=== PATIENT | male | born 1945 | race Caucasian/White ===

== ENCOUNTER → 2022-09-08 | Outpatient (REF) | payer MEDICARE, BC, SELFPAY ==
[2022-09-08 17:22] LABS: Hemoglobin 12.3 g/dL (13.0-16.5); Mean Corp Hgb Conc 30.8 g/dL (32-36); Mean Corpuscular Hgb 28.5 pg (27.0-32.0); Mean Corpuscular Volume 92.8 fL (80-94); Mean Platelet Vol. 9.6 fl (6.2-12.0); Platelet Count 259 K/mm3 (150-450); RBC Distribution Width CV 15.8 % (11.6-14.6); RBC Distribution Width SD 54.4 fl (35.1-43.9); Red Blood Count 4.31 M/mm3 (4.6-6.2); White Blood Count 9.8 K/mm3 (4.4-11.0)
[2022-09-08 17:23] LABS: Color, Urine Straw (Yellow); Glucose, Dipstick Normal (Normal); Ketone-Dipstick Negative (Negative); Leukocyte Esterase-Dipstick Negative /ul (Negative); Nitrite-Dipstick Negative (Negative); Occult Blood-Urine Negative /ul (Negative); Protein-Dipstick Negative (Negative); Urine Bilirubin Dipstick Negative (Negative); Urine Clarity Clear (Clear); Urine Urobilinogen Normal (Normal)
[2022-09-08 17:45] LABS: ALB/GLOB Ratio 0.6 RATIO (0.9-2.4); AST(SGOT) 11 U/L (15-37); Alanine Aminotransfer ALT/SGPT 18 U/L (16-61); Albumin, Serum 3.2 g/dL (3.2-5.0); Alkaline Phosphatase 100 U/L (45-117); Anion Gap 7 (5-15); BUN 35 mg/dL (7-18); BUN/Creat Ratio 28.5 RATIO (10-20); Calcium,Total 9.2 mg/dL (8.5-10.1); Chloride 100 mmol/L (98-107); Creatinine, Serum 1.23 mg/dL (0.70-1.30); EST Glomerular Filtration Rate 61 mL/min (>60); Est Glom Filt Rate - Afr Amer 74 mL/min (>60); Globulin 5.1 g/dL (2.2-4.2); Glucose 125 mg/dL (74-106); Potassium 5.2 mmol/L (3.5-5.1); Protein, Total 8.3 g/dL (6.4-8.2); Sodium Level 134 mmol/L (136-145)
== END ==
LOC: OLS.ACH 16:40
PROVIDERS: Visit Provider Family Medicine
DX: G40.919 Epilepsy, unspecified, intractable, without status epilepticus (principal); Z79.899 Other long term (current) drug therapy
CPT/HCPCS: 36415; 80053; 81002; 85027; 87086

== ENCOUNTER → 2022-09-15 | Outpatient (REF) | payer MEDICARE, BC, SELFPAY ==
[2022-09-15 18:01] LABS: Absolute Lymphocyte Count 2.16 X10^3/uL (0.83-4.51); Absolute Neutrophil Count 5.5 X10^3/uL (2.0-7.7); Basophil# 0.05 X10^3/uL; Basophil% 0.6 % (0-1); Eosinophil# 0.25 X10^3/uL; Eosinophils% 2.8 % (0-5); Hemoglobin 12.8 g/dL (13.0-16.5); Lymphocyte # 2.16 X10^3/ul (0.83-4.51); Lymphocyte % 24.3 % (19-41); Mean Corpuscular Hgb 29.4 pg (27.0-32.0); Mean Platelet Vol. 9.9 fl (6.2-12.0); Monocyte# 0.91 X10^3/uL; Monocyte% 10.2 % (0-10); NRBC Flagged by Analyzer 0 % (0-5); Neutrophil # 5.49 X10^3/uL (2.7-7.7); Neutrophil % 61.7 % (47-70); Platelet Count 301 K/mm3 (150-450); RBC Distribution Width CV 15.9 % (11.6-14.6); RBC Distribution Width SD 54.2 fl (35.1-43.9); Red Blood Count 4.35 M/mm3 (4.6-6.2); White Blood Count 8.9 K/mm3 (4.4-11.0)
[2022-09-15 18:24] LABS: ALB/GLOB Ratio 0.6 RATIO (0.9-2.4); AST(SGOT) 17 U/L (15-37); Alanine Aminotransfer ALT/SGPT 26 U/L (16-61); Albumin, Serum 3.2 g/dL (3.2-5.0); Alkaline Phosphatase 100 U/L (45-117); Anion Gap 8 (5-15); BUN 34 mg/dL (7-18); BUN/Creat Ratio 29.8 RATIO (10-20); Calcium,Total 9.5 mg/dL (8.5-10.1); Chloride 101 mmol/L (98-107); Creatinine, Serum 1.14 mg/dL (0.70-1.30); EST Glomerular Filtration Rate 66 mL/min (>60); Est Glom Filt Rate - Afr Amer 80 mL/min (>60); Globulin 5.4 g/dL (2.2-4.2); Glucose 129 mg/dL (74-106); Protein, Total 8.6 g/dL (6.4-8.2); Sodium Level 134 mmol/L (136-145)
[2022-09-16 08:58] LABS: Bacteria 0 SEEN /hpf (None Seen); Mucous, Urine 0 SEEN /hpf (<or=2+); Red Blood Cells-Urine 0 SEEN /hpf (0-5); Squamous Epithelial Cells - UA 0 SEEN /hpf (0-5)
[2022-09-16 09:12] LABS: Color, Urine Yellow (Yellow); Glucose, Dipstick Normal (Normal); Ketone-Dipstick Negative (Negative); Leukocyte Esterase-Dipstick 25 /ul (Negative); Nitrite-Dipstick Negative (Negative); Occult Blood-Urine Negative /ul (Negative); Protein-Dipstick Negative (Negative); Specific Gravity, Urine 1.015 (1.002-1.030); Urine Bilirubin Dipstick Negative (Negative); Urine Clarity Clear (Clear); Urine Urobilinogen Normal (Normal); Urine pH 6.5 (5.0 - 8.0)
[2022-09-16 10:30] LABS: White Blood Cells 0-5 SEEN /hpf (0-5)
== END ==
LOC: OLS.ACH 16:15
PROVIDERS: Visit Provider Family Medicine
DX: R50.9 Fever, unspecified (principal); G93.40 Encephalopathy, unspecified
CPT/HCPCS: 36415; 80053; 81001; 82140; 85025; 87040; 87086

== ENCOUNTER → 2022-09-18 | Outpatient (REF) | payer MEDICARE, BC, SELFPAY ==
[2022-09-18 09:40] LABS: Valproic Acid (Depakene) Level 44 ug/mL (50-100)
== END ==
LOC: OLS.ACH 05:00
PROVIDERS: Visit Provider Family Medicine
DX: G40.919 Epilepsy, unspecified, intractable, without status epilepticus (principal)
CPT/HCPCS: 36415; 80164; 82140

== ENCOUNTER → 2022-09-25 | Outpatient (REF) | payer MEDICARE, BC, SELFPAY ==
[2022-09-25 08:29] LABS: Valproic Acid (Depakene) Level 49 ug/mL (50-100)
[2022-09-26 05:23] LABS: Anion Gap 10 (5-15); BUN 20 mg/dL (7-18); BUN/Creat Ratio 22.1 RATIO (10-20); Chloride 100 mmol/L (98-107); EST Glomerular Filtration Rate 87 mL/min (>60); Est Glom Filt Rate - Afr Amer 105 mL/min (>60); Glucose 93 mg/dL (74-106); Potassium 5.3 mmol/L (3.5-5.1); Sodium Level 136 mmol/L (136-145)
== END ==
LOC: OLS.ACH 05:00
PROVIDERS: Visit Provider Family Medicine
DX: G40.919 Epilepsy, unspecified, intractable, without status epilepticus (principal)
CPT/HCPCS: 36415; 80048; 80164; 82140

== ENCOUNTER → 2022-09-29 | Outpatient (REF) | payer MEDICARE, BC, SELFPAY ==
[2022-09-29 09:18] LABS: Anion Gap 7 (5-15); BUN 29 mg/dL (7-18); BUN/Creat Ratio 30.4 RATIO (10-20); Calcium,Total 8.5 mg/dL (8.5-10.1); Chloride 103 mmol/L (98-107); Creatinine, Serum 0.95 mg/dL (0.70-1.30); EST Glomerular Filtration Rate 82 mL/min (>60); Est Glom Filt Rate - Afr Amer 99 mL/min (>60); Glucose 102 mg/dL (74-106); Sodium Level 136 mmol/L (136-145)
== END ==
LOC: OLS.ACH 05:00
PROVIDERS: Visit Provider Family Medicine
DX: I25.10 Atherosclerotic heart disease of native coronary artery without angina pectoris (principal)
CPT/HCPCS: 36415; 80048

== ENCOUNTER → 2022-10-16 | Outpatient (REF) | payer MEDICARE, BC, SELFPAY ==
[2022-10-16 10:28] LABS: Absolute Lymphocyte Count 2.23 X10^3/uL (0.83-4.51); Absolute Neutrophil Count 5.8 X10^3/uL (2.0-7.7); Basophil# 0.04 X10^3/uL; Basophil% 0.4 % (0-1); Eosinophil# 0.15 X10^3/uL; Eosinophils% 1.6 % (0-5); Hematocrit 39.4 % (40-54); Hemoglobin 12.1 g/dL (13.0-16.5); Lymphocyte # 2.23 X10^3/ul (0.83-4.51); Mean Corp Hgb Conc 30.7 g/dL (32-36); Mean Corpuscular Hgb 28.7 pg (27.0-32.0); Mean Corpuscular Volume 93.6 fL (80-94); Mean Platelet Vol. 9.2 fl (6.2-12.0); Monocyte# 1.06 X10^3/uL; Monocyte% 11.4 % (0-10); NRBC Flagged by Analyzer 0 % (0-5); Neutrophil # 5.78 X10^3/uL (2.7-7.7); Neutrophil % 62.2 % (47-70); Platelet Count 294 K/mm3 (150-450); RBC Distribution Width CV 17.1 % (11.6-14.6); RBC Distribution Width SD 58.4 fl (35.1-43.9); Red Blood Count 4.21 M/mm3 (4.6-6.2); White Blood Count 9.3 K/mm3 (4.4-11.0)
[2022-10-16 10:45] LABS: ALB/GLOB Ratio 0.6 RATIO (0.9-2.4); AST(SGOT) 20 U/L (15-37); Alanine Aminotransfer ALT/SGPT 28 U/L (16-61); Albumin, Serum 3.1 g/dL (3.2-5.0); Alkaline Phosphatase 85 U/L (45-117); Anion Gap 5 (5-15); BUN 32 mg/dL (7-18); BUN/Creat Ratio 28.1 RATIO (10-20); Calcium,Total 9.1 mg/dL (8.5-10.1); Chloride 104 mmol/L (98-107); Cholesterol 186 mg/dL (200); Creatinine, Serum 1.14 mg/dL (0.70-1.30); EST Glomerular Filtration Rate 66 mL/min (>60); Est Glom Filt Rate - Afr Amer 80 mL/min (>60); Glucose 82 mg/dL (74-106); High Density Lipoprotein 35 mg/dL; Protein, Total 8.1 g/dL (6.4-8.2); Sodium Level 135 mmol/L (136-145); Triglycerides 241 mg/dL; Very Low Density Lipoprotein 48 mg/dL (5-40)
[2022-10-16 11:19] LABS: Hemoglobin A1c 6.4 % (3.8-5.6)
== END ==
LOC: OLS.ACH 05:00
PROVIDERS: Visit Provider Family Medicine
DX: G93.40 Encephalopathy, unspecified (principal); I11.0 Hypertensive heart disease with heart failure; I50.9 Heart failure, unspecified; Z79.899 Other long term (current) drug therapy
CPT/HCPCS: 36415; 80053; 80061; 82140; 83036; 85025

== ENCOUNTER → 2022-10-18 | Outpatient (REF) | payer MEDICARE, BC, SELFPAY ==
[2022-10-18 08:13] LABS: AST(SGOT) 24 U/L (15-37); Alanine Aminotransfer ALT/SGPT 27 U/L (16-61); Albumin, Serum 2.4 g/dL (3.2-5.0); Alkaline Phosphatase 74 U/L (45-117); Bilirubin, Direct < 0.05 mg/dL (0.00-0.30); Globulin 4.8 g/dL (2.2-4.2); Protein, Total 7.2 g/dL (6.4-8.2)
== END ==
LOC: OLS.ACH 05:00
PROVIDERS: Visit Provider Family Medicine
DX: E72.29 Other disorders of urea cycle metabolism (principal)
CPT/HCPCS: 36415; 80076; 82140

== ENCOUNTER → 2022-10-23 | Outpatient (REF) | payer MEDICARE, BC, SELFPAY | LOC: OLS.ACH 05:00 | PROVIDERS: Visit Provider Family Medicine | DX: E72.29 Other disorders of urea cycle metabolism (principal) | CPT/HCPCS: 36415; 82140 ==

== ENCOUNTER → 2022-10-30 | Outpatient (REF) | payer MEDICARE, BC, SELFPAY | LOC: OLS.ACH 05:00 | PROVIDERS: Visit Provider Family Medicine | DX: E72.29 Other disorders of urea cycle metabolism (principal) | CPT/HCPCS: 36415; 82140 ==

== ENCOUNTER → 2022-11-07 | Outpatient (REF) | payer MEDICARE, BC, SELFPAY | LOC: OLS.ACH 04:00 | PROVIDERS: Visit Provider Family Medicine | DX: E72.20 Disorder of urea cycle metabolism, unspecified (principal) | CPT/HCPCS: 36415; 82140 ==

== ENCOUNTER → 2022-11-14 | Outpatient (REF) | payer MEDICARE, BC, SELFPAY | LOC: OLS.ACH 04:00 | PROVIDERS: PCP Internal Medicine; Referring Provider Internal Medicine; Visit Provider Internal Medicine | DX: G93.40 Encephalopathy, unspecified (principal); E72.20 Disorder of urea cycle metabolism, unspecified | CPT/HCPCS: 36415; 82140 ==

== ENCOUNTER → 2022-11-16 | Outpatient (REF) | payer MEDICARE, BC, SELFPAY ==
[2022-11-16 09:54] LABS: Hematocrit 38.4 % (40-54); Hemoglobin 11.4 g/dL (13.0-16.5); Mean Corp Hgb Conc 29.7 g/dL (32-36); Mean Corpuscular Hgb 29.2 pg (27.0-32.0); Mean Corpuscular Volume 98.5 fL (80-94); Mean Platelet Vol. 9.7 fl (6.2-12.0); Platelet Count 200 K/mm3 (150-450); RBC Distribution Width SD 61.3 fl (35.1-43.9); White Blood Count 9.1 K/mm3 (4.4-11.0)
== END ==
LOC: OLS.ACH 05:00
PROVIDERS: Visit Provider Internal Medicine
DX: D64.9 Anemia, unspecified (principal)
CPT/HCPCS: 36415; 85027

== ENCOUNTER → 2022-11-22 | Outpatient (REF) | payer MEDICARE, BC, SELFPAY | LOC: OLS.ACH 05:00 | PROVIDERS: Visit Provider Internal Medicine | DX: E72.20 Disorder of urea cycle metabolism, unspecified (principal) | CPT/HCPCS: 36415; 82140 ==

== ENCOUNTER → 2022-11-22 | Outpatient (REF) | payer MEDICARE, BC, SELFPAY ==
[2022-11-22 15:46] LABS: Absolute Lymphocyte Count 2.35 X10^3/uL (0.83-4.51); Absolute Neutrophil Count 5.2 X10^3/uL (2.0-7.7); Basophil# 0.03 X10^3/uL; Basophil% 0.3 % (0-1); Eosinophil# 0.12 X10^3/uL; Eosinophils% 1.3 % (0-5); Hemoglobin 11.3 g/dL (13.0-16.5); Lymphocyte # 2.35 X10^3/ul (0.83-4.51); Lymphocyte % 26.3 % (19-41); Mean Corp Hgb Conc 32.3 g/dL (32-36); Mean Corpuscular Hgb 30.2 pg (27.0-32.0); Mean Corpuscular Volume 93.6 fL (80-94); Monocyte# 1.16 X10^3/uL; NRBC Flagged by Analyzer 0 % (0-5); Neutrophil # 5.23 X10^3/uL (2.7-7.7); Neutrophil % 58.4 % (47-70); Platelet Count 188 K/mm3 (150-450); RBC Distribution Width CV 15.9 % (11.6-14.6); RBC Distribution Width SD 55.1 fl (35.1-43.9); Red Blood Count 3.74 M/mm3 (4.6-6.2)
[2022-11-22 16:03] LABS: ALB/GLOB Ratio 0.6 RATIO (0.9-2.4); AST(SGOT) 20 U/L (15-37); Alanine Aminotransfer ALT/SGPT 34 U/L (16-61); Albumin, Serum 2.4 g/dL (3.2-5.0); Alkaline Phosphatase 74 U/L (45-117); Anion Gap 6 (5-15); BUN 22 mg/dL (7-18); BUN/Creat Ratio 21.4 RATIO (10-20); Calcium,Total 8.9 mg/dL (8.5-10.1); Chloride 95 mmol/L (98-107); Creatinine, Serum 1.03 mg/dL (0.70-1.30); EST Glomerular Filtration Rate 75 mL/min (>60); Est Glom Filt Rate - Afr Amer 90 mL/min (>60); Globulin 4.3 g/dL (2.2-4.2); Glucose 117 mg/dL (74-106); Potassium 4.6 mmol/L (3.5-5.1); Protein, Total 6.7 g/dL (6.4-8.2); Sodium Level 131 mmol/L (136-145)
== END ==
LOC: OLS.ACH 15:00
PROVIDERS: Visit Provider Internal Medicine
DX: E11.9 Type 2 diabetes mellitus without complications (principal); J44.9 Chronic obstructive pulmonary disease, unspecified
CPT/HCPCS: 36415; 80053; 85025

== ENCOUNTER → 2022-12-04 | Outpatient (REF) | payer MEDICARE, BC, SELFPAY ==
[2022-12-04 09:21] LABS: Anion Gap 4 (5-15); BUN 22 mg/dL (7-18); BUN/Creat Ratio 21.2 RATIO (10-20); Calcium,Total 8.5 mg/dL (8.5-10.1); Chloride 108 mmol/L (98-107); Creatinine, Serum 1.04 mg/dL (0.70-1.30); EST Glomerular Filtration Rate 74 mL/min (>60); Est Glom Filt Rate - Afr Amer 89 mL/min (>60); Glucose 125 mg/dL (74-106); Potassium 4.3 mmol/L (3.5-5.1); Sodium Level 140 mmol/L (136-145)
== END ==
LOC: OLS.ACH 05:00
PROVIDERS: Visit Provider Internal Medicine
DX: G31.09 Other frontotemporal neurocognitive disorder (principal); I10 Essential (primary) hypertension
CPT/HCPCS: 36415; 80048

== ENCOUNTER → 2022-12-11 | Outpatient (REF) | payer MEDICARE, BC, SELFPAY ==
[2022-12-11 11:40] LABS: Valproic Acid (Depakene) Level 52 ug/mL (50-100)
== END ==
LOC: OLS.ACH 05:00
PROVIDERS: Visit Provider Internal Medicine
DX: F03.92 Unspecified dementia, unspecified severity, with psychotic disturbance (principal)
CPT/HCPCS: 36415; 80164

== ENCOUNTER → 2022-12-14 | Outpatient (REF) | payer MEDICARE, BC, SELFPAY ==
[2022-12-14 09:05] LABS: Valproic Acid (Depakene) Level 42 ug/mL (50-100)
[2022-12-14 09:31] LABS: ALB/GLOB Ratio 0.6 RATIO (0.9-2.4); AST(SGOT) 17 U/L (15-37); Alanine Aminotransfer ALT/SGPT 20 U/L (16-61); Albumin, Serum 2.5 g/dL (3.2-5.0); Alkaline Phosphatase 68 U/L (45-117); Anion Gap 7 (5-15); BUN 22 mg/dL (7-18); BUN/Creat Ratio 24.3 RATIO (10-20); Calcium,Total 8.8 mg/dL (8.5-10.1); Chloride 104 mmol/L (98-107); EST Glomerular Filtration Rate 87 mL/min (>60); Est Glom Filt Rate - Afr Amer 105 mL/min (>60); Globulin 4.1 g/dL (2.2-4.2); Glucose 117 mg/dL (74-106); Potassium 4.7 mmol/L (3.5-5.1); Protein, Total 6.6 g/dL (6.4-8.2); Sodium Level 136 mmol/L (136-145)
== END ==
LOC: OLS.ACH 05:00
PROVIDERS: Visit Provider Internal Medicine
DX: Z79.899 Other long term (current) drug therapy (principal)
CPT/HCPCS: 36415; 80053; 80164

== ENCOUNTER → 2022-12-18 | Outpatient (REF) | payer MEDICARE, BC, SELFPAY | LOC: OLS.ACH 05:00 | PROVIDERS: Visit Provider Internal Medicine | DX: E72.20 Disorder of urea cycle metabolism, unspecified (principal) | CPT/HCPCS: 36415; 82140 ==

== ENCOUNTER → 2022-12-21 | Outpatient (REF) | payer MEDICARE, BC, SELFPAY ==
[2022-12-21 09:58] LABS: Valproic Acid (Depakene) Level 50 ug/mL (50-100)
== END ==
LOC: OLS.ACH 05:00
PROVIDERS: Visit Provider Internal Medicine
DX: G40.919 Epilepsy, unspecified, intractable, without status epilepticus (principal)
CPT/HCPCS: 36415; 80164

== ENCOUNTER → 2022-12-25 | Outpatient (REF) | payer MEDICARE, BC, SELFPAY | LOC: OLS.ACH 05:00 | PROVIDERS: Visit Provider Internal Medicine | DX: E72.20 Disorder of urea cycle metabolism, unspecified (principal) | CPT/HCPCS: 36415; 82140 ==

== ENCOUNTER → 2023-01-08 | Outpatient (REF) | payer MEDICARE, BC, SELFPAY ==
[2023-01-08 09:05] LABS: Absolute Lymphocyte Count 2.37 X10^3/uL (0.83-4.51); Absolute Neutrophil Count 4.5 X10^3/uL (2.0-7.7); Basophil# 0.03 X10^3/uL; Basophil% 0.4 % (0-1); Eosinophil# 0.14 X10^3/uL; Eosinophils% 1.7 % (0-5); Hematocrit 36.3 % (40-54); Hemoglobin 11.4 g/dL (13.0-16.5); Lymphocyte # 2.37 X10^3/ul (0.83-4.51); Lymphocyte % 28.9 % (19-41); Mean Corp Hgb Conc 31.4 g/dL (32-36); Mean Corpuscular Volume 98.6 fL (80-94); Mean Platelet Vol. 9.7 fl (6.2-12.0); Monocyte# 1.08 X10^3/uL; Monocyte% 13.2 % (0-10); NRBC Flagged by Analyzer 0 % (0-5); Neutrophil # 4.54 X10^3/uL (2.7-7.7); Neutrophil % 55.4 % (47-70); Platelet Count 186 K/mm3 (150-450); RBC Distribution Width CV 14.6 % (11.6-14.6); RBC Distribution Width SD 53.5 fl (35.1-43.9); Red Blood Count 3.68 M/mm3 (4.6-6.2); White Blood Count 8.2 K/mm3 (4.4-11.0)
[2023-01-08 09:19] LABS: ALB/GLOB Ratio 0.6 RATIO (0.9-2.4); AST(SGOT) 26 U/L (15-37); Alanine Aminotransfer ALT/SGPT 31 U/L (16-61); Albumin, Serum 2.4 g/dL (3.2-5.0); Alkaline Phosphatase 63 U/L (45-117); Anion Gap 7 (5-15); BUN 21 mg/dL (7-18); BUN/Creat Ratio 21.9 RATIO (10-20); Calcium,Total 8.9 mg/dL (8.5-10.1); Chloride 104 mmol/L (98-107); Cholesterol 152 mg/dL (200); Creatinine, Serum 0.96 mg/dL (0.70-1.30); EST Glomerular Filtration Rate 81 mL/min (>60); Est Glom Filt Rate - Afr Amer 98 mL/min (>60); Globulin 4.2 g/dL (2.2-4.2); Glucose 101 mg/dL (74-106); High Density Lipoprotein 28 mg/dL; Potassium 4.5 mmol/L (3.5-5.1); Protein, Total 6.6 g/dL (6.4-8.2); Sodium Level 139 mmol/L (136-145); Triglycerides 209 mg/dL; Very Low Density Lipoprotein 42 mg/dL (5-40)
[2023-01-08 09:38] LABS: Hemoglobin A1c 6.4 % (3.8-5.6)
== END ==
LOC: OLS.ACH 04:00
PROVIDERS: Visit Provider Internal Medicine
DX: I25.10 Atherosclerotic heart disease of native coronary artery without angina pectoris (principal); E11.9 Type 2 diabetes mellitus without complications; E78.5 Hyperlipidemia, unspecified; D64.9 Anemia, unspecified
CPT/HCPCS: 36415; 80053; 80061; 83036; 85025

== ENCOUNTER → 2023-01-15 | Outpatient (REF) | payer MEDICARE, BC, SELFPAY | LOC: OLS.ACH 05:00 | PROVIDERS: Visit Provider Internal Medicine | DX: E72.20 Disorder of urea cycle metabolism, unspecified (principal) | CPT/HCPCS: 36415; 82140 ==

== ENCOUNTER → 2023-01-25 | Outpatient (REF) | payer MEDICARE, BC, SELFPAY ==
[2023-01-25 08:45] LABS: Valproic Acid (Depakene) Level 44 ug/mL (50-100)
[2023-01-29 16:20] LABS: Trileptal-Oxcarbazepine 42 ug/mL (10-35)
== END ==
LOC: OLS.ACH 05:00
PROVIDERS: Visit Provider Internal Medicine
DX: G40.919 Epilepsy, unspecified, intractable, without status epilepticus (principal)
CPT/HCPCS: 36415; 80164; 82542

== ENCOUNTER → 2023-01-29 | Outpatient (REF) | payer MEDICARE, BC, SELFPAY ==
[2023-01-29 09:19] LABS: Anion Gap 8 (5-15); BUN 18 mg/dL (7-18); BUN/Creat Ratio 21.2 RATIO (10-20); Calcium,Total 9.1 mg/dL (8.5-10.1); Chloride 98 mmol/L (98-107); Creatinine, Serum 0.85 mg/dL (0.70-1.30); EST Glomerular Filtration Rate 93 mL/min (>60); Est Glom Filt Rate - Afr Amer 113 mL/min (>60); Glucose 113 mg/dL (74-106); Potassium 4.4 mmol/L (3.5-5.1); Sodium Level 132 mmol/L (136-145)
== END ==
LOC: OLS.ACH 05:00
PROVIDERS: Visit Provider Internal Medicine
DX: I50.22 Chronic systolic (congestive) heart failure (principal)
CPT/HCPCS: 36415; 80048

== ENCOUNTER → 2023-02-06 | Outpatient (REF) | payer MEDICARE, BC, SELFPAY ==
[2023-02-06 08:58] LABS: Hematocrit 41.2 % (40-54); Hemoglobin 12.8 g/dL (13.0-16.5); Mean Corp Hgb Conc 31.1 g/dL (32-36); Mean Corpuscular Volume 96.7 fL (80-94); Mean Platelet Vol. 9.3 fl (6.2-12.0); Platelet Count 194 K/mm3 (150-450); RBC Distribution Width CV 14.3 % (11.6-14.6); Red Blood Count 4.26 M/mm3 (4.6-6.2); White Blood Count 7.2 K/mm3 (4.4-11.0)
[2023-02-06 09:19] LABS: ALB/GLOB Ratio 0.6 RATIO (0.9-2.4); AST(SGOT) 24 U/L (15-37); Alanine Aminotransfer ALT/SGPT 35 U/L (16-61); Albumin, Serum 2.8 g/dL (3.2-5.0); Alkaline Phosphatase 86 U/L (45-117); Anion Gap 3 (5-15); BUN 23 mg/dL (7-18); BUN/Creat Ratio 24.5 RATIO (10-20); Calcium,Total 9.1 mg/dL (8.5-10.1); Chloride 104 mmol/L (98-107); Creatinine, Serum 0.94 mg/dL (0.70-1.30); EST Glomerular Filtration Rate 83 mL/min (>60); Est Glom Filt Rate - Afr Amer 101 mL/min (>60); Globulin 4.4 g/dL (2.2-4.2); Glucose 103 mg/dL (74-106); Potassium 4.2 mmol/L (3.5-5.1); Protein, Total 7.2 g/dL (6.4-8.2); Sodium Level 135 mmol/L (136-145)
== END ==
LOC: OLS.ACH 05:00
PROVIDERS: Visit Provider Internal Medicine
DX: E72.20 Disorder of urea cycle metabolism, unspecified (principal); G93.40 Encephalopathy, unspecified
CPT/HCPCS: 36415; 80053; 82140; 85027

== ENCOUNTER → 2023-02-07 | Outpatient (CLI) | payer MEDICARE, BC, SELFPAY ==
--- NOTE | 2023-02-07 09:23 | TELEMED_ITS ---
[facility] has confirmed receipt of a request for visit. This document confirms receipt of the order initiating the consult. To find the results of the consultation, please view the patient's reports for the scanned Telemed Consult.
== END | disposition home or self-care (01) ==
PROVIDERS: Visit Provider Psychiatry & Neurology Neurology
DX: R56.9 Unspecified convulsions (principal)
CPT/HCPCS: 95819

== ENCOUNTER → 2023-02-12 | Outpatient (REF) | payer MEDICARE, BC, SELFPAY | LOC: OLS.ACH 04:00 | PROVIDERS: Referring Provider Internal Medicine; Visit Provider Internal Medicine | DX: E72.20 Disorder of urea cycle metabolism, unspecified (principal) | CPT/HCPCS: 36415; 82140 ==

== ENCOUNTER → 2023-03-05 | Outpatient (REF) | payer MEDICARE, BC, SELFPAY ==
[2023-03-05 09:13] LABS: Valproic Acid (Depakene) Level 55 ug/mL (50-100)
== END ==
LOC: OLS.ACH 05:00
PROVIDERS: Visit Provider Internal Medicine
DX: G40.919 Epilepsy, unspecified, intractable, without status epilepticus (principal)
CPT/HCPCS: 36415; 80164

== ENCOUNTER → 2023-03-12 | Outpatient (REF) | payer MEDICARE, BC, SELFPAY | LOC: OLS.ACH 04:00 | PROVIDERS: Referring Provider Internal Medicine; Visit Provider Internal Medicine | DX: E72.20 Disorder of urea cycle metabolism, unspecified (principal) | CPT/HCPCS: 36415; 82140 ==

== ENCOUNTER → 2023-03-26 | Outpatient (REF) | payer MEDICARE, BC, SELFPAY | LOC: OLS.ACH 05:00 | PROVIDERS: Visit Provider Internal Medicine | DX: E72.20 Disorder of urea cycle metabolism, unspecified (principal) | CPT/HCPCS: 36415; 82140 ==

== ENCOUNTER → 2023-04-02 | Outpatient (REF) | payer MEDICARE, BC, SELFPAY ==
[2023-04-02 09:18] LABS: Absolute Lymphocyte Count 2.63 X10^3/uL (0.83-4.51); Absolute Neutrophil Count 4.9 X10^3/uL (2.0-7.7); Basophil# 0.05 X10^3/uL; Basophil% 0.6 % (0-1); Eosinophil# 0.11 X10^3/uL; Eosinophils% 1.3 % (0-5); Hematocrit 37.3 % (40-54); Hemoglobin 11.7 g/dL (13.0-16.5); Lymphocyte # 2.63 X10^3/ul (0.83-4.51); Lymphocyte % 29.9 % (19-41); Mean Corp Hgb Conc 31.4 g/dL (32-36); Mean Corpuscular Hgb 29.9 pg (27.0-32.0); Mean Corpuscular Volume 95.4 fL (80-94); Mean Platelet Vol. 9.7 fl (6.2-12.0); Monocyte# 1.04 X10^3/uL; Monocyte% 11.8 % (0-10); NRBC Flagged by Analyzer 0 % (0-5); Neutrophil # 4.93 X10^3/uL (2.7-7.7); Neutrophil % 56.1 % (47-70); Platelet Count 181 K/mm3 (150-450); RBC Distribution Width CV 15.2 % (11.6-14.6); RBC Distribution Width SD 53.1 fl (35.1-43.9); Red Blood Count 3.91 M/mm3 (4.6-6.2); White Blood Count 8.8 K/mm3 (4.4-11.0)
[2023-04-02 09:42] LABS: Cholesterol 184 mg/dL (200); High Density Lipoprotein 29 mg/dL; Triglycerides 303 mg/dL; Very Low Density Lipoprotein 61 mg/dL (5-40)
[2023-04-02 09:47] LABS: Hemoglobin A1c 7.1 % (3.8-5.6)
== END ==
LOC: OLS.ACH 05:00
PROVIDERS: Visit Provider Internal Medicine
DX: I25.10 Atherosclerotic heart disease of native coronary artery without angina pectoris (principal); E11.9 Type 2 diabetes mellitus without complications; E78.5 Hyperlipidemia, unspecified; D64.9 Anemia, unspecified
CPT/HCPCS: 36415; 80061; 83036; 85025

== ENCOUNTER → 2023-04-03 | Outpatient (REF) | payer MEDICARE, BC, SELFPAY ==
[2023-04-03 13:24] LABS: Hematocrit 42.5 % (40-54); Hemoglobin 12.4 g/dL (13.0-16.5); Mean Corp Hgb Conc 29.2 g/dL (32-36); Mean Corpuscular Hgb 29.7 pg (27.0-32.0); Mean Corpuscular Volume 101.9 fL (80-94); Mean Platelet Vol. 9.5 fl (6.2-12.0); Platelet Count 156 K/mm3 (150-450); RBC Distribution Width SD 56.6 fl (35.1-43.9); Red Blood Count 4.17 M/mm3 (4.6-6.2); White Blood Count 8.1 K/mm3 (4.4-11.0)
[2023-04-03 13:36] LABS: ALB/GLOB Ratio 0.5 RATIO (0.9-2.4); AST(SGOT) 30 U/L (15-37); Alanine Aminotransfer ALT/SGPT 31 U/L (16-61); Albumin, Serum 2.5 g/dL (3.2-5.0); Alkaline Phosphatase 81 U/L (45-117); Anion Gap 8 (5-15); BUN 26 mg/dL (7-18); BUN/Creat Ratio 24.5 RATIO (10-20); Calcium,Total 8.6 mg/dL (8.5-10.1); Chloride 100 mmol/L (98-107); Creatinine, Serum 1.06 mg/dL (0.70-1.30); EST Glomerular Filtration Rate 72 mL/min (>60); Est Glom Filt Rate - Afr Amer 87 mL/min (>60); Globulin 4.6 g/dL (2.2-4.2); Glucose 117 mg/dL (74-106); Potassium 4.6 mmol/L (3.5-5.1); Protein, Total 7.1 g/dL (6.4-8.2); Sodium Level 133 mmol/L (136-145)
[2023-04-03 13:55] LABS: Scan Indicated on CBC? Y/N NO
== END ==
LOC: OLS.ACH 12:15
PROVIDERS: Visit Provider Internal Medicine
DX: R11.10 Vomiting, unspecified (principal); E11.9 Type 2 diabetes mellitus without complications
CPT/HCPCS: 36415; 80053; 82140; 85027

== ENCOUNTER → 2023-04-10 | Outpatient (REF) | payer MEDICARE, BC, SELFPAY | LOC: OLS.ACH 05:00 | PROVIDERS: Visit Provider Internal Medicine | DX: E72.20 Disorder of urea cycle metabolism, unspecified (principal) | CPT/HCPCS: 36415; 82140 ==

== ENCOUNTER → 2023-05-08 | Outpatient (REF) | payer MEDICARE, BC, SELFPAY ==
[2023-05-08 10:00] LABS: ALB/GLOB Ratio 0.6 RATIO (0.9-2.4); AST(SGOT) 23 U/L (15-37); Alanine Aminotransfer ALT/SGPT 28 U/L (16-61); Albumin, Serum 2.8 g/dL (3.2-5.0); Alkaline Phosphatase 79 U/L (45-117); Anion Gap 5 (5-15); BUN 28 mg/dL (7-18); BUN/Creat Ratio 26.7 RATIO (10-20); Calcium,Total 9.3 mg/dL (8.5-10.1); Chloride 106 mmol/L (98-107); Creatinine, Serum 1.05 mg/dL (0.70-1.30); EST Glomerular Filtration Rate 73 mL/min (>60); Est Glom Filt Rate - Afr Amer 88 mL/min (>60); Globulin 4.6 g/dL (2.2-4.2); Glucose 138 mg/dL (74-106); Potassium 4.6 mmol/L (3.5-5.1); Protein, Total 7.4 g/dL (6.4-8.2); Sodium Level 138 mmol/L (136-145)
== END ==
LOC: OLS.ACH 05:00
PROVIDERS: PCP Internal Medicine; Referring Provider Internal Medicine; Visit Provider Internal Medicine
DX: I11.0 Hypertensive heart disease with heart failure (principal); I50.9 Heart failure, unspecified
CPT/HCPCS: 36415; 80053; 82140

== ENCOUNTER → 2023-05-09 | Outpatient (REF) | payer MEDICARE, BC, SELFPAY | LOC: OLS.ACH 08:00 | PROVIDERS: PCP Internal Medicine; Visit Provider Internal Medicine | DX: E72.20 Disorder of urea cycle metabolism, unspecified (principal) | CPT/HCPCS: 36415; 82140 ==

== ENCOUNTER 2023-05-19 17:18 | Inpatient (IN) | payer MEDICARE, BC, SELFPAY ==
[2023-05-19] VITALS (17 sets, daily range): BP systolic 74–158; BP diastolic 47–115; PULSE 93–114; RESP 19–40; TEMP 36.7–38.2; O2SAT 84–100; BMI 29.7
--- NOTE | 2023-05-19 17:32 | CT_ITS ---
STUDY: CT BRAIN WITHOUT CONTRAST REASON FOR EXAM: Male, 78 years old. Change mental status RADIATION DOSAGE (If Supplied By Facility): CTDIvol = ( 44.99 ) mGy, DLP = ( 897.35 ) mGycm TECHNIQUE: Transaxial CT imaging of the brain was performed without administration of intravenous contrast material. Individualized dose optimization techniques were used for this CT. COMPARISON: No relevant priors. FINDINGS: Normal soft tissue structures. Normal calvarium. There is moderate cerebral atrophy with widening of the extra-axial spaces and ventricular dilatation. There are areas of decreased attenuation within the white matter tracts of the supratentorial brain, consistent with microvascular disease changes. Encephalomalacia and gliosis of the left more than right frontal lobes likely chronic sequela of previous infarction or traumatic injury. Normal basal ganglia and thalami. Normal brainstem. Normal cerebellum. There is no intracranial hemorrhage. There are no findings of an acute ischemic infarction. Normal visualized paranasal sinuses. CT/Brain/Head without Contrast IMPRESSION: No acute intracranial hemorrhage or mass effect. Electronically Signed: Jeff Agrawal (Brooks), at 19:11 EDT Reading Location ID and State: [facility] / [place] , Service support ,
--- NOTE | 2023-05-19 17:32 | EKG12_ITS ---
Test Reason : SOB Blood Pressure : / mmHG Vent. Rate : 111 BPM Atrial Rate : 111 BPM P-R Int : 178 ms QRS Dur : 142 ms QT Int : 350 ms P-R-T Axes : 074 095 022 degrees QTc Int : 476 ms Sinus tachycardia Rightward axis Left bundle branch block Abnormal ECG Confirmed by AURORA NICHOLAS, [place] ([id number]), editor managing newspaper JOSÉ MIGUEL ORTEGA ([id number]) on 05/21/2023 11:32:07 A M Referred By: Confirmed By:CARLIN SIMON MD
--- NOTE | 2023-05-19 17:33 | CT_ITS ---
STUDY: CT ABDOMEN AND PELVIS WITH CONTRAST REASON FOR EXAM: Male, 78 years old. Nausea vomiting pain RADIATION DOSAGE (If Supplied By Facility): CTDIvol = ( 15.33 ) mGy, DLP = ( 1305.20 ) mGycm TECHNIQUE: Transaxial images were obtained from the dome of the diaphragm to the symphysis pubis without oral contrast. IV 100mL Isovue-370 was administered. Sagittal and coronal images were reconstructed. Individualized dose optimization techniques were used for this CT. COMPARISON: None. FINDINGS: Airspace consolidation involving the right more than left lower lobes. The visualized portions of the heart are within normal limits. Normal liver. Normal gallbladder and extrahepatic biliary system. Normal spleen. Normal pancreas. Normal bilateral adrenal glands. Simple bilateral renal cysts. No required imaging follow-up needed given high likelihood of benign nature. There is a small hiatal hernia. No dilated small bowel. No colon wall thickening. The appendix is visualized and appears normal. There is diffuse atherosclerotic calcification of the abdominal aorta, without a demonstrated aneurysm. Normal inferior vena cava. Normal retroperitoneum. Normal urinary bladder. Normal abdominal wall. Surgical hardware of the proximal left femur. CT/Abdomen/Pelvis W IV Cont ONLY IMPRESSION: 1. Bilateral lower lobe pulmonary airspace disease suggesting pneumonia. 2. No bowel obstruction or acute inflammatory process of the abdomen/pelvis. Electronically Signed: Jeff Agrawal (Brooks), at 19:14 EDT ,
--- NOTE | 2023-05-19 17:36 | EX.ED.GENINJ ---
HPI History of Present Illness Chief Complaint: Nausea/Vomiting Informant: EMS and SNF Narrative Narrative: Patient reportedly has been less alert and energetic for about 3 days. Today he started vomiting. He had trouble breathing after this. He has vomited about 6 times. Its been clear liquid seen here. No blood. Patient does speak but he is very quiet but he has not really been talking for a few days. He is DNR comfort care arrest DO NOT INTUBATE. He is not comfort care. I also reviewed his long-term papers medications allergies and history. Patient is nonverbal now I cannot get a detailed review of systems from him. I only have a little bit of information available. [facility] Medical History (Updated 05/21/23 @ 07:[address] Edi Stephens, DO) Anemia CAD (coronary artery disease) CHF (congestive heart failure) COPD (chronic obstructive pulmonary disease) Dementia Diabetes Former smoker GERD (gastroesophageal reflux disease) Gout HLD (hyperlipidemia) Idiopathic polyneuropathy Mood disorder Non-rheumatic tricuspid valve insufficiency Seizures Home Medications aspirin 81 mg tablet,delayed release (Adult Low Dose Aspirin) 81 mg PO DAILY HEART HEALTH 05/19/23 [History Last Taken 05/19/23] atorvastatin 20 mg tablet 20 mg PO QPM CHOLESTEROL 05/19/23 [History Last Taken 05/18/23] cholecalciferol (vitamin D3) 25 mcg (1,000 unit) capsule 25 mcg PO DAILY SUPPLEMENT 05/19/23 [History Last Taken 05/19/23] dulaglutide 1.5 mg/0.5 mL subcutaneous pen injector (Trulicity) 1.5 mg subcut QWEEK DM 05/19/23 [History Last Taken 05/13/23] escitalopram oxalate 10 mg tablet 10 mg PO DAILY DEPRESSION 05/19/23 [History Last Taken 05/18/23] febuxostat 80 mg tablet 80 mg PO DAILY GOUT 05/19/23 [History Last Taken 05/19/23] gabapentin 300 mg capsule 300 mg PO TID ENCEPHALOPATHY 05/19/23 [History Last Taken 05/19/23] lactulose 10 gram/15 mL oral solution 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 05/19/23 [History Last Taken 05/19/23] lisinopril 2.5 mg tablet 2.5 mg PO DAILY HTN 05/19/23 [History Last Taken 05/19/23] metoprolol tartrate 25 mg tablet 12.5 mg PO BID HTN 05/19/23 [History Last Taken 05/19/23] ondansetron HCl 4 mg tablet 4 mg PO Q8H PRN nausea 05/19/23 [History Last Taken 05/19/23] oxcarbazepine 600 mg tablet 600 mg PO BID SEIZURES 05/19/23 [History Last Taken 05/19/23] torsemide 10 mg tablet 10 mg PO DAILY HTN 05/19/23 [History Last Taken 05/19/23] valproic acid 250 mg capsule 500 mg PO Q8H EPILEPSY 05/19/23 [History Last Taken 05/19/23] Allergy/AdvReac Type Severity Reaction Status Date / Time guaifenesin Allergy Intermediate PT UNABLE Verified 05/20/23 00:33 TO RESPOND-NEEDS F/U codeine Allergy Unknown All blood Verified 05/19/23 18:31 cells low Family History unable to obtain Social History Smoking Status: Unknown if ever smoked ROS ROS ED ROS Narrative Very limited per history of present illness. Respiratory/Chest Respiratory/Chest: Reports cough Gastrointestinal Gastrointestinal: Reports vomiting Integumentary Reports other Details: Has some chronic red patches on his skin thought to be due to agent orange but none of this is new or different. ; Denies rash Neurologic Neurologic: Reports other Details: Patient has been having more generalized weakness and less verbal for 3 days per history of present illness. Allergic/Immunologic Allergic/Immunologic ED: Denies urticaria EXAM Physical Exam Narrative Exam Narrative: CONSTITUTIONAL: He is laying in bed. His breathing does look a little bit labored. I can hear some coarse breath sounds. He had saturations in the 70% range. He was placed on nonrebreather and he is up to 90 right now. He does open his eyes and look when you talk to him. HEENT: No notable trauma. Mucous membranes moist. RR increased secretions. EYES: No conjunctival injection. NECK: No meningismus. No JVD seen. CARDIOVASCULAR: Tachycardic rate. Regular rhythm. No notable murmur. However, due to coarse breath sounds it would be hard to hear a murmur. No JVD. RESPIRATORY: Breath sounds are coarse bilaterally. Saturations are slowly improving while I am in the room. GASTROINTESTINAL: Abdomen looks like it may be a bit distended but I have not seen this patient before. Bowel sounds are normal to increased. I am not getting any indication of tenderness. Although the patient is nonverbal he does look at me when I talk. I think he would display indication of pain if he had some. But I cannot say this for sure. GENITOURINARY: No tenderness over the bladder. I do not feel an enlarged bladder but it may be difficult to feel. MUSCULOSKELETAL: Atraumatic. Trace edema. NEUROLOGICAL: Patient is awake with voice. He has global decreased function but I am not seeing lateralizing findings. SKIN: No noted rashes. No diaphoresis. No vesicles noted. No notable pallor. PSYCHIATRIC: Patient is calm. Const Vital Signs: 05/19/23 17:24 05/19/23 17:34 05/19/23 17:31 Temperature 98.6 F 98.6 F 98.6 F Temperature Source Temporal Temporal Temporal Pulse Rate 114 H 112 H 113 H Respiratory Rate 40 H 27 H 25 H Respiratory Effort Respiratory Depth Respiratory Pattern Blood Pressure 158/115 H 145/71 H 145/71 H Blood Pressure Mean 129 95 95 Pulse Ox 84 93 Oxygen Delivery Method Nasal Cannula Venturi Mask Non-Rebreather Oxygen Flow Rate (L/min) 6 15 05/19/23 17:45 05/19/23 18:31 05/19/23 17:15 Temperature 98.1 F Temperature Source Temporal Pulse Rate 110 H 112 H Respiratory Rate 40 H 22 H Respiratory Effort Short of Breath Respiratory Depth Normal Respiratory Pattern Tachypnea Blood Pressure 95/47 L Blood Pressure Mean 63 Pulse Ox 100 Oxygen Delivery Method Non-Rebreather Nasal Cannula Oxygen Flow Rate (L/min) 15 6 05/19/23 17:40 05/19/23 18:42 05/19/23 19:00 Temperature 100.5 F H Temperature Source Axillary Pulse Rate 101 H Respiratory Rate 20 H Respiratory Effort Respiratory Depth Normal Respiratory Pattern Tachypnea Blood Pressure 92/60 Blood Pressure Mean 70 Pulse Ox 100 Oxygen Delivery Method Non-Rebreather Non-Rebreather Non-Rebreather Oxygen Flow Rate (L/min) 05/19/23 20:05 Temperature Temperature Source Pulse Rate 110 H Respiratory Rate 19 H Respiratory Effort Respiratory Depth Respiratory Pattern Blood Pressure Blood Pressure Mean Pulse Ox Oxygen Delivery Method Oxygen Flow Rate (L/min) MDM MDM MDM Narrative Medical decision making narrative: Patient does have an elevated white count on his CBC. Platelets are normal. Patient's electrolytes show a mild kidney/creatinine elevation 1.37 but he is given IV fluids here. Patient's lactic acid is slightly high at 2.3. Patient's liver function tests are overall normal. Patient is life system normal. Patient's urinalysis is clear. CT scan of the head was read as negative. My independent interpretation of the patient's CT of the abdomen shows no acute intra-abdominal process. Final is negative for intra-abdominal but they do show increased markings at both bases. My independent her potation of this chest x-ray showed bilateral lower infiltrates likely aspiration from the history. Reading is similar. With the patient's need for oxygen, now developing a borderline fever, white count he was treated with IV antibiotics. We initially were under the impression that he was DNR but we find out he is actually DNR Comfort Care arrest. He is not to be intubated but the rest of the care is appropriate. We will now give him sepsis fluids. He is already gotten a liter we will give further amounts. We have not gotten cultures initially because there were questions of his status. We thought he was comfort care only. Patient is discussed with the hospitalist. He had dropped his pressure little bit but was responding very well to fluids. He is only a small elevation of his lactate. Lab Data Attestation: I reviewed the patient's lab results. Labs: Laboratory Results - last 24 hr 05/19/23 05/19/23 17:45 19:25 WBC 14.4 H RBC 4.75 Hgb 14.3 Hct 46.1 MCV 97.1 H MCH 30.1 MCHC 31.0 L RDW Std Deviation 53.5 H RDW Coeff of Bobby 14.9 H Plt Count 200 MPV 9.4 Immature Gran % (Auto) 0.300 Neut % (Auto) 80.6 H Lymph % (Auto) 9.0 L [place] % (Auto) 9.7 Eos % (Auto) 0.1 Baso % (Auto) 0.3 Absolute Neuts (auto) 11.6 H Absolute Lymphs (auto) 1.30 Nucleated RBC % 0 Sodium 134 L Potassium 5.0 Chloride 100 Carbon Dioxide 29.0 Anion Gap 5 BUN 24 H Creatinine 1.37 H Estim Creat Clear Calc 51.84 Est GFR (MDRD) Af Amer 65 Est GFR (MDRD) Non-Af 54 L BUN/Creatinine Ratio 17.5 Glucose 164 H Lactic Acid 2.3 H* Calcium 9.1 Total Bilirubin 0.30 AST 21 ALT 28 Alkaline Phosphatase 86 Total Protein 8.1 Albumin 2.9 L Globulin 5.2 H Albumin/Globulin Ratio 0.6 L Lipase 30 Urine Color Yellow Urine Clarity Clear Urine pH 6.0 Ur Specific [place] 1.015 Urine Protein 30 H Urine Glucose (UA) Normal Urine Ketones 5 H Urine Occult Blood 10 H Urine Nitrite Negative Urine Bilirubin Negative Urine Urobilinogen 1 H Ur Leukocyte Esterase 25 H Urine RBC 0 SEEN Urine WBC 0 SEEN Ur Squamous Epith Cells 0 SEEN Urine Bacteria 0 SEEN Urine Mucus 0 SEEN Radiography Diagnostic Testing: Clinical Impression(s) from Imaging Studies Brain CT 05/19/23 17:32 IMPRESSION: No acute intracranial hemorrhage or mass effect. Electronically Signed: Jeff Agrawal (Brooks), at 19:11 EDT , Abdomen/Pelvis CT 05/19/23 17:33 IMPRESSION: 1. Bilateral lower lobe pulmonary airspace disease suggesting pneumonia. 2. No bowel obstruction or acute inflammatory process of the abdomen/pelvis. Electronically Signed: Jeff Agrawal (Brooks), at 19:14 EDT , Chest X-Ray 05/19/23 19:50 IMPRESSION: 1. Bibasilar pulmonary infiltrates, probable pneumonia. 2. Chronic pleural fibrotic thickening versus small effusions. Electronically Signed: Jeff Agrawal (Brooks), at 20:03 EDT , EKG Initial EKG: Comments: My independent her potation the patient's EKG done for tachycardia shows a sinus rhythm with tachycardic rate at 111. No ventricular ectopy. There is left bundle branch block and secondary changes but no sign of infarct or ischemia. [place] interval is normal. QRS duration is long. QTc is mildly toward the longer end at 476 ms. Management Discussion w/another healthcare provider: Hospitalist Discharge Plan Dx/Rx/DC Orders Clinical Impression: Aspiration pneumonia, Hypoxia, Nausea & vomiting, Acidosis, lactic, Sepsis Disposition Disposition: Acute Care Hospital [facility] Discharge Date/Time: 05/20/23 00:20
[2023-05-19] MEDS: Ondansetron 4 MG/2 ML Vial IV (17:44)
[2023-05-19] MEDS: Ipratropium/Albuterol Sulfate 3 ML AMPUL.NEB INHALATION (17:45)
[2023-05-19 17:54] LABS: Absolute Neutrophil Count 11.6 X10^3/uL (2.0-7.7); Basophil# 0.04 X10^3/uL; Basophil% 0.3 % (0-1); Eosinophil# 0.02 X10^3/uL; Eosinophils% 0.1 % (0-5); Hematocrit 46.1 % (40-54); Hemoglobin 14.3 g/dL (13.0-16.5); Mean Corpuscular Hgb 30.1 pg (27.0-32.0); Mean Corpuscular Volume 97.1 fL (80-94); Mean Platelet Vol. 9.4 fl (6.2-12.0); Monocyte# 1.39 X10^3/uL; Monocyte% 9.7 % (0-10); NRBC Flagged by Analyzer 0 % (0-5); Neutrophil # 11.61 X10^3/uL (2.7-7.7); Neutrophil % 80.6 % (47-70); Platelet Count 200 K/mm3 (150-450); RBC Distribution Width CV 14.9 % (11.6-14.6); RBC Distribution Width SD 53.5 fl (35.1-43.9); Red Blood Count 4.75 M/mm3 (4.6-6.2); White Blood Count 14.4 K/mm3 (4.4-11.0)
[2023-05-19 18:13] LABS: ALB/GLOB Ratio 0.6 RATIO (0.9-2.4); AST(SGOT) 21 U/L (15-37); Alanine Aminotransfer ALT/SGPT 28 U/L (16-61); Albumin, Serum 2.9 g/dL (3.2-5.0); Alkaline Phosphatase 86 U/L (45-117); Anion Gap 5 (5-15); BUN 24 mg/dL (7-18); BUN/Creat Ratio 17.5 RATIO (10-20); Calcium,Total 9.1 mg/dL (8.5-10.1); Chloride 100 mmol/L (98-107); Creatinine, Serum 1.37 mg/dL (0.70-1.30); EST Glomerular Filtration Rate 54 mL/min (>60); Est Glom Filt Rate - Afr Amer 65 mL/min (>60); Estimated Creatinine Clearance 51.84 ml/min; Globulin 5.2 g/dL (2.2-4.2); Glucose 164 mg/dL (74-106); Lipase 30 U/L (13-75); Protein, Total 8.1 g/dL (6.4-8.2); Sodium Level 134 mmol/L (136-145)
[2023-05-19 18:23] LABS: Lactic Acid 2.3 mmol/L (0.4-1.9)
[2023-05-19] MEDS: 0.9% Normal Saline 1,000 ML 999 ML IV ×3 (18:25→22:31)
[2023-05-19 19:28] LABS: Bacteria 0 SEEN /hpf (None Seen); Mucous, Urine 0 SEEN /hpf (<or=2+); Red Blood Cells-Urine 0 SEEN /hpf (0-5); Squamous Epithelial Cells - UA 0 SEEN /hpf (0-5); White Blood Cells 0 SEEN /hpf (0-5)
[2023-05-19 19:30] LABS: Color, Urine Yellow (Yellow); Glucose, Dipstick Normal (Normal); Ketone-Dipstick 5 mg/dl (Negative); Leukocyte Esterase-Dipstick 25 /ul (Negative); Nitrite-Dipstick Negative (Negative); Occult Blood-Urine 10 /ul (Negative); Protein-Dipstick 30 mg/dl (Negative); Specific Gravity, Urine 1.015 (1.002-1.030); Urine Bilirubin Dipstick Negative (Negative); Urine Clarity Clear (Clear); Urine Urobilinogen 1 mg/dl (Normal)
--- NOTE | 2023-05-19 19:50 | RAD_ITS ---
STUDY: X-RAY CHEST REASON FOR EXAM: Male, 78 years old. cough TECHNIQUE: AP COMPARISON: None. FINDINGS: Airspace disease involving the right more than left lower lobes. Blunting of bilateral costophrenic angles. There is mild cardiac enlargement. 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 Normal visualized pulmonary arteries. There is atherosclerotic calcification of the aortic arch with tortuosity. There is demineralization of the osseous structures. Normal visualized ribs, clavicles, and shoulders. There is no demonstrated abnormality of the visualized soft tissue structures of the upper abdomen. RAD/Chest 1 View (Portable) IMPRESSION: 1. Bibasilar pulmonary infiltrates, probable pneumonia. 2. Chronic pleural fibrotic thickening versus small effusions. Electronically Signed: Jeff Agrawal (Brooks), at 20:03 EDT ,
[2023-05-19] MEDS: Acetaminophen 650 MG Suppository RC (21:31)
[2023-05-19 21:51] LABS: Reflex Lactate? Y
--- NOTE | 2023-05-19 22:35 | PCM.HP.STD ---
HPI - General General Date of Admission: 05/19/23 Date of Service: 05/19/23 Chief Complaint: nausea and vomiting. HPI Narrative CAITY BECK, is a 78 M who presents emergency department with nausea and vomiting. He is hypoxic . Reportedly his oxygen saturation was in the 70s. History was taken for emergent department doctor as patient was not talking at the time of history taking. Reportedly patient has been unable to speak. Emergency department doctor reported that patient was rhonchorous on presentation but with suction his oxygen saturation improved. [facility] Medical History Anemia CAD (coronary artery disease) CAD (coronary artery disease) CHF (congestive heart failure) COPD (chronic obstructive pulmonary disease) Dementia Diabetes Former smoker GERD (gastroesophageal reflux disease) Gout Gout HLD (hyperlipidemia) Idiopathic polyneuropathy Mood disorder Non-rheumatic tricuspid valve insufficiency Seizures Home Medications aspirin 81 mg tablet,delayed release (Adult Low Dose Aspirin) 81 mg PO DAILY HEART HEALTH 05/19/23 [History Last Taken 05/19/23] atorvastatin 20 mg tablet 20 mg PO QPM CHOLESTEROL 05/19/23 [History Last Taken 05/18/23] cholecalciferol (vitamin D3) 25 mcg (1,000 unit) capsule 25 mcg PO DAILY SUPPLEMENT 05/19/23 [History Last Taken 05/19/23] dulaglutide 1.5 mg/0.5 mL subcutaneous pen injector (Trulicity) 1.5 mg subcut QWEEK DM 05/19/23 [History Last Taken 05/13/23] escitalopram oxalate 10 mg tablet 10 mg PO DAILY DEPRESSION 05/19/23 [History Last Taken 05/18/23] febuxostat 80 mg tablet 80 mg PO DAILY GOUT 05/19/23 [History Last Taken 05/19/23] gabapentin 300 mg capsule 300 mg PO TID ENCEPHALOPATHY 05/19/23 [History Last Taken 05/19/23] lactulose 10 gram/15 mL oral solution 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 05/19/23 [History Last Taken 05/19/23] lisinopril 2.5 mg tablet 2.5 mg PO DAILY HTN 05/19/23 [History Last Taken 05/19/23] metoprolol tartrate 25 mg tablet 12.5 mg PO BID HTN 05/19/23 [History Last Taken 05/19/23] ondansetron HCl 4 mg tablet 4 mg PO Q8H PRN nausea 05/19/23 [History Last Taken 05/19/23] oxcarbazepine 600 mg tablet 600 mg PO BID SEIZURES 05/19/23 [History Last Taken 05/19/23] torsemide 10 mg tablet 10 mg PO DAILY HTN 05/19/23 [History Last Taken 05/19/23] valproic acid 250 mg capsule 500 mg PO Q8H EPILEPSY 05/19/23 [History Last Taken 05/19/23] Allergy/AdvReac Type Severity Reaction Status Date / Time guaifenesin Allergy Intermediate PT UNABLE Verified 05/20/23 00:33 TO RESPOND-NEEDS F/U codeine Allergy Unknown All blood Verified 05/19/23 18:31 cells low Family History unable to obtain unable to obtain Surgical History unable to obtain unable to obtain Social History Smoking Status: Unknown if ever smoked ROS Review of Systems ROS Unobtainable: due to mental status Vital Signs Vital Signs Vital Signs: 05/19/23 17:24 05/19/23 17:34 05/19/23 17:31 Temperature 98.6 F 98.6 F 98.6 F Temperature Source Temporal Temporal Temporal Pulse Rate 114 H 112 H 113 H Respiratory Rate 40 H 27 H 25 H Respiratory Effort Respiratory Depth Respiratory Pattern Blood Pressure 158/115 H 145/71 H 145/71 H Blood Pressure Mean 129 95 95 Pulse Ox 84 93 Oxygen Delivery Method Nasal Cannula Venturi Mask Non-Rebreather Oxygen Flow Rate (L/min) 6 15 05/19/23 17:45 05/19/23 18:31 05/19/23 17:15 Temperature 98.1 F Temperature Source Temporal Pulse Rate 110 H 112 H Respiratory Rate 40 H 22 H Respiratory Effort Short of Breath Respiratory Depth Normal Respiratory Pattern Tachypnea Blood Pressure 95/47 L Blood Pressure Mean 63 Pulse Ox 100 Oxygen Delivery Method Non-Rebreather Nasal Cannula Oxygen Flow Rate (L/min) 15 6 05/19/23 17:40 05/19/23 18:42 05/19/23 19:00 Temperature 100.5 F H Temperature Source Axillary Pulse Rate 101 H Respiratory Rate 20 H Respiratory Effort Respiratory Depth Normal Respiratory Pattern Tachypnea Blood Pressure 92/60 Blood Pressure Mean 70 Pulse Ox 100 Oxygen Delivery Method Non-Rebreather Non-Rebreather Non-Rebreather Oxygen Flow Rate (L/min) 05/19/23 20:05 05/19/23 20:00 05/19/23 21:00 Temperature 100.4 F H 100.6 F H Temperature Source Axillary Axillary Pulse Rate 110 H 107 H 99 Respiratory Rate 19 H 24 H 22 H Respiratory Effort Respiratory Depth Respiratory Pattern Blood Pressure 105/86 H 74/51 L Blood Pressure Mean 92 58 Pulse Ox 95 95 Oxygen Delivery Method Non-Rebreather Nasal Cannula Oxygen Flow Rate (L/min) 6 05/19/23 22:00 05/19/23 22:32 Temperature 98.1 F 98.2 F Temperature Source Oral Oral Pulse Rate 93 93 Respiratory Rate 20 H 20 H Respiratory Effort Respiratory Depth Respiratory Pattern Blood Pressure 89/53 L 98/57 L Blood Pressure Mean 65 70 Pulse Ox 100 100 Oxygen Delivery Method Room Air Nasal Cannula Oxygen Flow Rate (L/min) 4 Weight Weight: 102.1 kg Body Mass Index (BMI) 29.7 Physical Exam Narrative Physical exam: General: Well-nourished, well-developed. Head: Normocephalic, atraumatic, no tenderness Eyes: Vision is grossly intact. ENT, does not follow command check mucous membrane. Neck: Nontender, No thyromegaly. CVS: Regular rate and rhythm. S1-S2 present. No murmur, gallop or rub. Respiratory : Audible rhonchi. Abdomen: Soft, nontender, nondistended, normal bowel sounds, no masses : Deferred Back: Nontender, no CVA tenderness, no midline spinal tenderness, Extremities: Nontender full range of motion, no trauma Skin: Normal color, no trauma, abrasions Neuro: Obtunded. Psychiatry: Obtunded. Results Lab / Micro Data 05/20/23 04:30 05/20/23 04:30 Labs: Laboratory Results - last 24 hr 05/19/23 17:45: WBC 14.4 H, RBC 4.75, Hgb 14.3, Hct 46.1, MCV 97.1 H, MCH 30.1, MCHC 31.0 L, RDW Std Deviation 53.5 H, RDW Coeff of Bobby 14.9 H, Plt Count 200, MPV 9.4, Immature Gran % (Auto) 0.300, Neut % (Auto) 80.6 H, Lymph % (Auto) 9.0 L, [place] % (Auto) 9.7, Eos % (Auto) 0.1, Baso % (Auto) 0.3, Absolute Neuts (auto) 11.6 H, Absolute Lymphs (auto) 1.30, Nucleated RBC % 0, Sodium 134 L, Potassium 5.0, Chloride 100, Carbon Dioxide 29.0, Anion Gap 5, BUN 24 H, Creatinine 1.37 H, Estim Creat Clear Calc 51.84, Est GFR (MDRD) Af Amer 65, Est GFR (MDRD) Non-Af 54 L, BUN/Creatinine Ratio 17.5, Glucose 164 H, Lactic Acid 2.3 H*, Calcium 9.1, Total Bilirubin 0.30, AST 21, ALT 28, Alkaline Phosphatase 86, Total Protein 8.1, Albumin 2.9 L, Globulin 5.2 H, Albumin/Globulin Ratio 0.6 L, Lipase 30 05/19/23 19:25: Urine Color Yellow, Urine Clarity Clear, Urine pH 6.0, Ur Specific [place] 1.015, Urine Protein 30 H, Urine Glucose (UA) Normal, Urine Ketones 5 H, Urine Occult Blood 10 H, Urine Nitrite Negative, Urine Bilirubin Negative, Urine Urobilinogen 1 H, Ur Leukocyte Esterase 25 H, Urine RBC 0 SEEN, Urine WBC 0 SEEN, Ur Squamous Epith Cells 0 SEEN, Urine Bacteria 0 SEEN, Urine Mucus 0 SEEN Radiology Impression Brain CT 05/19/23 17:32 IMPRESSION: No acute intracranial hemorrhage or mass effect. Electronically Signed: Jeff KumariQiuDurga Agrawal, at 19:11 EDT , Abdomen/Pelvis CT 05/19/23 17:33 IMPRESSION: 1. Bilateral lower lobe pulmonary airspace disease suggesting pneumonia. 2. No bowel obstruction or acute inflammatory process of the abdomen/pelvis. Electronically Signed: Jeff Agrawal ([place]), at 19:14 EDT , Chest X-Ray 05/19/23 19:50 IMPRESSION: 1. Bibasilar pulmonary infiltrates, probable pneumonia. 2. Chronic pleural fibrotic thickening versus small effusions. Electronically Signed: Jeff Agrawal ([place]), at 20:03 EDT , Assessment & Plan Assessment/Plan (1) Sepsis: QUALIFIERS: Sepsis type: sepsis due to unspecified organism Sepsis acute organ dysfunction status: with acute organ dysfunction Severe sepsis acute organ dysfunction type: acute renal failure Acute renal failure type: unspecified Severe sepsis shock status: with septic shock Qualified Code(s): A41.9 - Sepsis, unspecified organism; R65.21 - Severe sepsis with septic shock; N17.9 - Acute kidney failure, unspecified (2) Aspiration pneumonia: QUALIFIERS: Aspiration pneumonia type: due to gastric secretions Laterality: bilateral Lung location: unspecified part of lung Qualified Code(s): J69.0 - Pneumonitis due to inhalation of food and vomit PLAN: Plan Septic shock due to aspiration The patient presented with sepsis due to (aspiration pneumonia) with acute sepsis related organ dysfunction as evidenced by (lactic acidosis and hypotension with systolic blood pressure less than 90/MAP less than 65). SIRS criteria: Temperature more than 100.9 Fahrenheit Heart rate more than 90 WBC more than 12,000 organ dysfunction: SBP less than 90 or MAP less than 65 Lactic acidosis lactic acid more than 2 Impression of chest x-ray by radiology: 1. Bibasilar pulmonary infiltrates, probable pneumonia. 2. Chronic pleural fibrotic thickening versus small effusions. Chest x-ray was independently interpreted and I agree radiology interpretation Blood culture ordered at the emergency department, follow; Trend lactic acid. Received normal saline bolus per septic shock protocol. Start patient on Levophed as systolic blood pressure continue less than 90/MAP less than 60. Unasyn ordered. Trend CBC. Time spent in the patient's overall evaluation,decision-making process, review of diagnostic data, adjustment of management, discussion with other providers, nursing nursing and ancillary staff involved in patient's care documentation, 65 minutes. Charges/Coding Visit Charges Inpatient E&M: 71908 Init Hosp L3
[2023-05-19 22:42] LABS: Lactic Acid 3.9 mmol/L (0.4-1.9)
--- NOTE | 2023-05-19 22:46 | ED.RN ---
lab critical lactic 3.9 hospitalist notified.
--- NOTE | 2023-05-19 22:59 | NURSING ---
Nurse called from [facility] asking for update, update provided.
--- NOTE | 2023-05-19 23:01 | NURSING ---
This RN attempted to call Alexus Werner, to update on Plan of Care. Left message.
[2023-05-20] VITALS (51 sets, daily range): BP systolic 72–157; BP diastolic 46–138; PULSE 89–120; RESP 17–48; TEMP 37.3–38.5; O2SAT 88–100; BMI 29.7; BMI 29.9
[2023-05-20] MEDS: levETIRAcetam IV 1,000 MG/100 ML BAG 400 MG IV (01:17)
[2023-05-20] MEDS: 0.9% Saline Lock 10 ML Syringe IV ×4 (01:17→05:14)
[2023-05-20] MEDS: CHLORHEXIDINE GLUC 2% CLOTH 1 EACH TOWELETTE TOPICAL (01:21)
--- NOTE | 2023-05-20 02:30 | RAD_ITS ---
EXAM: XR ABDOMEN, 1 VIEW CLINICAL INDICATION: NG placement TECHNIQUE: Frontal supine view of the lower chest/upper abdomen, 2:26 AM. COMPARISON: Portable chest radiograph of 05/19/2023. FINDINGS: LOWER THORAX: Sternal wires and mitral annular ring are again noted. Streaky infiltrates are noted in the lower lungs. The costophrenic angles remain blunted. GASTROINTESTINAL TRACT: No distended small bowel loops are seen. The stomach is decompressed. ORGANS: Excreted contrast noted within the intrarenal collecting systems. BONES/JOINTS: Thoracolumbar degenerative spurring is present. SOFT TISSUES: No acute pathology. TUBES and DEVICES: Single view of the lower chest and upper abdomen shows interval insertion of an NG tube, which extends into the stomach. The tip of the tube and sidehole are projected within the gastric body, in satisfactory position. RAD/Abdomen Single View (Portable) IMPRESSION: Satisfactory NG tube positioning. Electronically Signed: Elieser German MD at 2:55 EDT ,
[2023-05-20 04:36] LABS: Basophil# 0.07 X10^3/uL; Eosinophil# 0.04 X10^3/uL; Hematocrit 43.9 % (40-54); Hemoglobin 13.4 g/dL (13.0-16.5); Mean Corp Hgb Conc 30.5 g/dL (32-36); Mean Corpuscular Hgb 30.9 pg (27.0-32.0); Mean Corpuscular Volume 101.2 fL (80-94); Mean Platelet Vol. 9.8 fl (6.2-12.0); NRBC Flagged by Analyzer 0 % (0-5); POSITIVE DIFFERENTIAL YES; POSITIVE MORPHOLOGY YES; Platelet Count 183 K/mm3 (150-450); RBC Distribution Width CV 15.4 % (11.6-14.6); RBC Distribution Width SD 57.9 fl (35.1-43.9); Red Blood Count 4.34 M/mm3 (4.6-6.2); White Blood Count 14.8 K/mm3 (4.4-11.0)
[2023-05-20 04:38] LABS: Differential Indicated SCAN CRITERIA MET
[2023-05-20 05:05] LABS: Anion Gap 6 (5-15); BUN 23 mg/dL (7-18); BUN/Creat Ratio 15.8 RATIO (10-20); Calcium,Total 8.1 mg/dL (8.5-10.1); Chloride 106 mmol/L (98-107); Creatinine, Serum 1.46 mg/dL (0.70-1.30); EST Glomerular Filtration Rate 50 mL/min (>60); Est Glom Filt Rate - Afr Amer 60 mL/min (>60); Estimated Creatinine Clearance 48.65 ml/min; Glucose 159 mg/dL (74-106); Potassium 5.6 mmol/L (3.5-5.1); Sodium Level 139 mmol/L (136-145)
[2023-05-20] MEDS: Lactulose 20 GM/30 ML UDC NG ×3 (05:06→22:09)
[2023-05-20 05:34] LABS: Scan Smear per Review Criteria MANUAL DIFF
[2023-05-20 05:38] LABS: Lymphocyte 4 % (19-41); Metamyelocyte 11 % (0-1); Monocyte 16 % (0-10); Myelocyte 1 % (0-0); Neutrophil-Band 19 % (0-5); Neutrophil-Segmented 49 % (47-70); Total Cells Counted 100 (MANUAL DIFF)
[2023-05-20 05:39] LABS: Absolute Neutrophil Count 11.8 X10^3/uL (2.0-7.7); Neutrophil # 11.84 X10^3/uL (2.7-7.7)
[2023-05-20 05:40] LABS: Absolute Lymphocyte Count 0.59 X10^3/uL (0.83-4.51); Lymphocyte # 0.59 X10^3/ul (0.83-4.51); Platelet Estimate ADEQUATE (ADEQ); Red Cell Morphology NORM C+C NORMAL (NORM C&C)
--- NOTE | 2023-05-20 08:43 | PCM.PN.HOSP ---
Reason for Visit Reason for Visit: Nausea and vomiting Subjective Subjective Mr. Lobo is a 78-year-old who presents emergency department at [facility] yesterday from an extended care facility with increased lethargy and nausea and vomiting that started on the morning of admission. When EMS arrived to the nursing facility his sats were only 78% on room air. Not much of a history other than above was able to be obtained on presentation as the patient was quite somnolent and his mental status is poor. Upon presentation his temperature was 98.6, heart rate 114, blood pressure was 158/111, respiratory rate was 40 and oxygen saturation was 84% on 6 L nasal cannula. Oxygen was increased to a Ventimask at 15 L/min and then a nonrebreather at which time his oxygen saturations improved to 100%. During his course in the emergency department he became hypotensive with a low blood pressure of 74/51 and developed a fever with a Tmax of 100.8. This morning he has had a fever of 101.1. His CBC showed a leukocytosis with a white count of 14.4 and a left shift showing an 80.6% neutrophilia. His chemistry panel showed mild hyponatremia and JOAQUIM with a serum creatinine of 1.37 (baseline 0.8-1.05) sugars 164 and his initial lactate was 2.3. Reassessment of lactate was 3.9 in a.m. lactate is pending. He did receive IV fluid resuscitation at 30 cc/kg body weight but remained hypotensive so pressors were started. Cultures were obtained and he was started on Unasyn. He was admitted to the ICU. Nursing did have a discussion with his POA and from what they are describing he is back to baseline this morning with regards to his mental status. Nursing indicates he is having trouble managing his his secretions which are very voluminous. I did order a culture for sputum. He has an NG in place to give his lactulose. We will transition from Keppra back to his home antiepileptic medications and obtain ammonia level. He has been able to be weaned to 2 L nasal cannula and appears to be clinically stabilizing. It sounds as if his vomiting had been related to him may be gagging on secretions as his secretions have been very voluminous and thick. Nursing reported that they discussed with the niece and the facility that the vomit was mucoid in nature and did not contain food. Objective Data Objective Data Vital Signs: Vital Signs Temp Pulse Resp BP Pulse Ox O2 Del Method O2 Flow Rate 100.5 F H 100 20 H 94/53 L 88 Room Air 2 05/20/23 08:00 05/20/23 08:30 05/20/23 08:00 05/20/23 08:30 05/20/23 08:00 05/20/23 08:00 05/20/23 07:20 FiO2 3 05/19/23 23:59 Oxygen Flow Rate (L/min) 2 Oxygen Delivery Method Room Air Weight: 102.3 kg Body Mass Index (BMI) 29.9 Intake & Output: Intake and Output for Last 24 Hours 05/18/23 05/19/23 05/20/23 23:59 23:59 23:59 Intake Total 2965.7 / 2965.7 418.57 / 418.57 Output Total 400 / 400 Balance 2965.7 / 2965.7 18.57 / 18.57 Lab / Micro Data 05/20/23 04:30 05/20/23 04:30 Labs: Laboratory Results - last 24 hr 05/19/23 17:45: WBC 14.4 H, RBC 4.75, Hgb 14.3, Hct 46.1, MCV 97.1 H, MCH 30.1, MCHC 31.0 L, RDW Std Deviation 53.5 H, RDW Coeff of Bobby 14.9 H, Plt Count 200, MPV 9.4, Immature Gran % (Auto) 0.300, Neut % (Auto) 80.6 H, Lymph % (Auto) 9.0 L, [place] % (Auto) 9.7, Eos % (Auto) 0.1, Baso % (Auto) 0.3, Absolute Neuts (auto) 11.6 H, Absolute Lymphs (auto) 1.30, Nucleated RBC % 0, Sodium 134 L, Potassium 5.0, Chloride 100, Carbon Dioxide 29.0, Anion Gap 5, BUN 24 H, Creatinine 1.37 H, Estim Creat Clear Calc 51.84, Est GFR (MDRD) Af Amer 65, Est GFR (MDRD) Non-Af 54 L, BUN/Creatinine Ratio 17.5, Glucose 164 H, Lactic Acid 2.3 H*, Calcium 9.1, Total Bilirubin 0.30, AST 21, ALT 28, Alkaline Phosphatase 86, Total Protein 8.1, Albumin 2.9 L, Globulin 5.2 H, Albumin/Globulin Ratio 0.6 L, Lipase 30 05/19/23 19:25: Urine Color Yellow, Urine Clarity Clear, Urine pH 6.0, Ur Specific [place] 1.015, Urine Protein 30 H, Urine Glucose (UA) Normal, Urine Ketones 5 H, Urine Occult Blood 10 H, Urine Nitrite Negative, Urine Bilirubin Negative, Urine Urobilinogen 1 H, Ur Leukocyte Esterase 25 H, Urine RBC 0 SEEN, Urine WBC 0 SEEN, Ur Squamous Epith Cells 0 SEEN, Urine Bacteria 0 SEEN, Urine Mucus 0 SEEN 05/19/23 22:07: Lactic Acid 3.9 H* 05/20/23 04:30: WBC 14.8 H, RBC 4.34 L, Hgb 13.4, Hct 43.9, MCV 101.2 H, MCH 30.9, MCHC 30.5 L, RDW Std Deviation 57.9 H, RDW Coeff of Bobby 15.4 H, Plt Count 183, MPV 9.8, Immature Gran % (Auto) NEUROSCIENTIST, Neut % (Auto) NEUROSCIENTIST, Lymph % (Auto) NEUROSCIENTIST, [place] % (Auto) NEUROSCIENTIST, Eos % (Auto) NEUROSCIENTIST, Baso % (Auto) NEUROSCIENTIST, Absolute Neuts (auto) 11.8 H, Absolute Lymphs (auto) 0.59 L, Total Counted 100, Neutrophils % (Manual) 49, Band Neutrophils % 19 H, Lymphocytes % (Manual) 4 L, Monocytes % (Manual) 16 H, Metamyelocytes % 11 H, Myelocytes % 1 H, Nucleated RBC % 0, Diff Path Review March, Platelet Estimate ADEQUATE, RBC Morphology NORM C+C, Sodium 139, Potassium 5.6 H, Chloride 106, Carbon Dioxide 27.0, Anion Gap 6, BUN 23 H, Creatinine 1.46 H, Estim Creat Clear Calc 48.65, Est GFR (MDRD) Af Amer 60, Est GFR (MDRD) Non-Af 50 L, BUN/Creatinine Ratio 15.8, Glucose 159 H, Calcium 8.1 L Radiography Diagnostic Testing: Radiology Impression Brain CT 05/19/23 17:32 IMPRESSION: No acute intracranial hemorrhage or mass effect. Electronically Signed: Jeff Agrawal ([place]), at 19:11 EDT , Abdomen/Pelvis CT 05/19/23 17:33 IMPRESSION: 1. Bilateral lower lobe pulmonary airspace disease suggesting pneumonia. 2. No bowel obstruction or acute inflammatory process of the abdomen/pelvis. Electronically Signed: Jeff Agrawal ([place]), at 19:14 EDT , Chest X-Ray 05/19/23 19:50 IMPRESSION: 1. Bibasilar pulmonary infiltrates, probable pneumonia. 2. Chronic pleural fibrotic thickening versus small effusions. Electronically Signed: Jeff Agrawal ([place]oks), at 20:03 EDT , KUB X-Ray 05/20/23 02:30 IMPRESSION: Satisfactory NG tube positioning. Electronically Signed: Elieser German MD at 2:55 EDT , Physical Exam Const alert and no apparent distress; Negative for oriented x3 or healthy appearing Constitutional Narrative: Overweight, elderly, white male, sitting up in bed with nursing at bedside performing NT suction, patient is alert and is able to tell me his name but no other orientation can be reproduced, he appears comfortable at this time and currently appears nontoxic appears well-nourished at baseline, appears chronically ill and older than stated age HEENT head/scalp atraumatic and moist oral mucous membranes HEENT Narrative: NG tube in place, Mallampati is 2, no thrush, dentition is poor Head and Scalp: normocephalic Eyes PERRL, EOMs intact bilaterally and conjunctivae normal Eyes Narrative: No scleral icterus Neck no lymphadenopathy, supple and no JVD Neck Narrative: Trachea midline, no thyroid in Resp no retractions, no use of accessory muscles and No clear to auscultation bilaterally Resp Narrative: Tachypneic, diffuse scattered rhonchi Auscultation: rhonchi; Negative for rales or wheezes Cardio regular rhythm, S1 normal heart sound, S2 normal heart sound, no murmurs, no rub, no gallops and no clicks Cardio Narrative: Mildly tachycardic however the patient is being NT suctioned GI normal to inspection, nondistended, normoactive bowel sounds, soft to palpation and non-tender Extremity no clubbing, cyanosis or edema Extremity Narrative: Pedal pulses are 2+ Skin skin turgor normal, no jaundice, no petechiae and no mottling Skin Narrative: Pale but no significant lesions Neuro Neuro Narrative: Oriented only to self, moves all extremities symmetrically, generalized weakness noted, speech is somewhat garbled and difficult to understand and this is evidently baseline Psych Psych Narrative: Difficult to assess however patient appears to be agitated at the time of my evaluation however he was being NT suctioned Assessment & Plan Assessment/Plan (1) Septic shock: (2) Acidosis, lactic: (3) Nausea & vomiting: (4) Acute respiratory failure with hypoxia: (5) Dysphagia: (6) JOAQUIM (acute kidney injury): (7) Hyperkalemia: (8) Toxic metabolic encephalopathy: (9) Leukocytosis: PLAN: Plan Septic shock -Patient with fever, leukocytosis, tachypnea, acute hypoxic respiratory failure, elevated lactate that was refractory to fluid resuscitation at 30 cc/kg body weight -Pressors were initiated--> pressors have been able to be weaned this morning with maps greater than 65 however blood pressures are still soft -Continue to monitor in ICU for blood pressure support requirements -Suspected source is aspiration but definitive work-up is in progress -UA is not suggestive of infection -Sputum culture pending -Strep pneumo and Legionella antigens are negative -Blood cultures are pending -Chest x-ray shows bibasilar infiltrates and patient was having nausea and vomiting prior to presentation -We will broaden antibiotics to Zosyn and vancomycin for now until cultures are finalized -Check MRSA PCR -We will consult pulmonary/critical care medicine Acute hypoxic respiratory failure -Patient with tachypnea and hypoxia on presentation initially required up titration to 15 L and then nonrebreather at 100% -Patient has now been weaned to room air -Continue NT suctioning as needed as patient appears to be having difficulty can trolling and managing his secretions -Start inhaled Mucomyst -Add vest therapy -Patient is not oxygen dependent at baseline -Infectious work-up as noted above -Continue antibiotics as noted above -Pulmonary toilet Toxic/metabolic encephalopathy -Patient was not responsive on presentation -More responsive today and after discussion with his POA by nursing it sounds like he is at his baseline currently -Patient with dementia at baseline and is at risk for hospital acquired delirium -Continue to monitor would avoid atypical antipsychotics and Haldol as this could lower seizure threshold Leukocytosis -No significant changes of yet -Continue to monitor -No antibiotic changes above -Cultures pending Lactic acidosis -Actually has trended up -Repeat lactate is pending now the blood pressure is more stabilized JOAQUIM -Baseline serum creatinine appears to be between 0.8 and 1 -Current serum creatinine is 1.46--> suspect mild ischemic ATN -We will continue IV fluids with normal saline at 75 cc/h -Repeat BMP in a.m. and if creatinine further up trends will need to pursue further work-up -Hold home torsemide -Hold home lisinopril -Decrease gabapentin to 100 3 times daily DM-2 -On Trulicity at baseline -Trulicity on hold -Start sliding scale insulin -Accu-Cheks Q6 Hyperkalemia -Mild specimen had moderate hemolysis so I suspect this is due to hyperkalemia -Repeat BMP in a.m. Dysphagia -Highly concern for aspiration pneumonia -Consult speech therapy -NG tube in place right now for medication administration -May need to pull NG as this would likely make his swallowing appear worse than it actually is History of seizure disorder -Start Trileptal -Restart valproic acid -Both via NG -Discontinue Keppra -Check ammonia level on presentation as patient is on chronic lactulose for hyperammonemia previously -Continue home lactulose History of gout -Restart febuxostat once able Depression -Hold Lexapro for now Hyperlipidemia -Hold to restart now Dementia -Baseline orientation is DVT prophylaxis -Lovenox 40 daily CODE STATUS Been DNR [facility] with no intubation Charges/Coding Visit Charges Inpatient E&M: 69283 Subs Hosp L3
[2023-05-20] MEDS: OXcarbazepine 600 MG Tablet PO ×2 (10:02→22:10)
[2023-05-20] MEDS: 0.9% Normal Saline 1,000 ML 75 ML IV (10:02)
[2023-05-20] MEDS: Valproic Acid 250 MG/5 ML UDC 500 MG NG ×3 (10:03→22:10)
[2023-05-20 10:27] LABS: Lactic Acid 1.9 mmol/L (0.4-1.9)
[2023-05-20 11:31] LABS: Bedside Glucose 116 mg/dL (74-106)
--- NOTE | 2023-05-20 11:45 | PCM.RX.CS ---
Consult Antibiotic Management Pharmacy has been consulted to manage selected antiobiotic: Vancomycin Type of Intervention Type of Consult: New start Suspected Infection Suspected Infection: Pneumonia Labs Labs: Sodium 139 mmol/L (136-145) 05/20/23 04:30 Potassium 5.6 mmol/L (3.5-5.1) H 05/20/23 04:30 Chloride 106 mmol/L (98-107) 05/20/23 04:30 Carbon Dioxide 27.0 mmol/L (21.0-32.0) 05/20/23 04:30 Anion Gap 6 (5-15) 05/20/23 04:30 BUN 23 mg/dL (7-18) H 05/20/23 04:30 Creatinine 1.46 mg/dL (0.70-1.30) H 05/20/23 04:30 Est GFR (MDRD) Af Amer 60 mL/min (>60) 05/20/23 04:30 Est GFR (MDRD) Non-Af 50 mL/min (>60) L 05/20/23 04:30 BUN/Creatinine Ratio 15.8 RATIO (10-20) 05/20/23 04:30 Glucose 159 mg/dL (74-106) H 05/20/23 04:30 Pharmacy Plan for Drug Dosing Pharmacy Plan for Drug Dosing: NEW START IV VANCOMYCIN Consulting Physician: SAE Indication: PNEUMONIA/SEPSIS Goal Trough: 15-20 MG/DL SrCr: 1.46 MG/DL CrCl: 48.6 ML/MIN Comments: INITIAL STANDARD DOSE (102 KG) OF 1500MG GIVEN 05/20 @ 1110 Vancomycin Dose: WILL START 750MG Q12 @ 2300 AND GET A TROUGH PRIOR TO 4TH TOTAL DOSE OF REGIMEN. Pending Level: 05/21/23 @ 2230 Pharmacy Service will continue to monitor and adjust dosing as required.
[2023-05-20 12:49] LABS: M R Staph aureus DNA By PCR Negative (Negative); Probe Check PASS; Specimen Processing Control PASS
[2023-05-20] MEDS: Ipratropium/Albuterol Sulfate 3 ML AMPUL.NEB INHALATION ×2 (14:00→19:13)
[2023-05-20] MEDS: Acetylcysteine 800 MG/4 ML VIAL.NEB. INHALATION ×2 (14:00→19:13)
[2023-05-20] MEDS: Gabapentin 100 MG Capsule NG ×2 (14:27→22:13)
[2023-05-20 17:53] LABS: Bedside Glucose 126 mg/dL (74-106)
[2023-05-21] VITALS (23 sets, daily range): BP systolic 95–140; BP diastolic 53–113; PULSE 78–107; RESP 14–21; TEMP 36.4–37.6; O2SAT 94–98; BMI 30.6
[2023-05-21] MEDS: CHLORHEXIDINE GLUC 2% CLOTH 1 EACH TOWELETTE TOPICAL
[2023-05-21 00:27] LABS: Bedside Glucose 140 mg/dL (74-106)
[2023-05-21] MEDS: 0.9% Saline Lock 10 ML Syringe IV (01:36)
[2023-05-21] MEDS: Ipratropium/Albuterol Sulfate 3 ML AMPUL.NEB INHALATION ×4 (01:50→19:05)
[2023-05-21] MEDS: Acetylcysteine 800 MG/4 ML VIAL.NEB. INHALATION ×4 (01:50→19:09)
[2023-05-21 04:38] LABS: Absolute Lymphocyte Count 1.14 X10^3/uL (0.83-4.51); Absolute Neutrophil Count 2.9 X10^3/uL (2.0-7.7); Basophil# 0.03 X10^3/uL; Basophil% 0.6 % (0-1); Eosinophil# 0.02 X10^3/uL; Eosinophils% 0.4 % (0-5); Hematocrit 36.6 % (40-54); Hemoglobin 11.1 g/dL (13.0-16.5); Lymphocyte # 1.14 X10^3/ul (0.83-4.51); Lymphocyte % 22.5 % (19-41); Mean Corp Hgb Conc 30.3 g/dL (32-36); Mean Corpuscular Hgb 30.8 pg (27.0-32.0); Mean Corpuscular Volume 101.7 fL (80-94); Mean Platelet Vol. 9.5 fl (6.2-12.0); Monocyte# 0.98 X10^3/uL; Monocyte% 19.3 % (0-10); NRBC Flagged by Analyzer 0 % (0-5); Neutrophil # 2.89 X10^3/uL (2.7-7.7); POSITIVE COUNT YES; Platelet Count 126 K/mm3 (150-450); RBC Distribution Width CV 15.4 % (11.6-14.6); RBC Distribution Width SD 58.4 fl (35.1-43.9); White Blood Count 5.1 K/mm3 (4.4-11.0)
[2023-05-21 04:41] LABS: Differential Indicated SCAN CRITERIA MET
[2023-05-21] MEDS: Valproic Acid 250 MG/5 ML UDC 500 MG NG ×2 (04:51→13:05)
[2023-05-21] MEDS: Lactulose 20 GM/30 ML UDC NG ×2 (04:51→13:05)
[2023-05-21] MEDS: Gabapentin 100 MG Capsule NG (04:52)
[2023-05-21 04:58] LABS: Anion Gap 6 (5-15); BUN 17 mg/dL (7-18); Calcium,Total 7.7 mg/dL (8.5-10.1); Chloride 115 mmol/L (98-107); EST Glomerular Filtration Rate 77 mL/min (>60); Est Glom Filt Rate - Afr Amer 94 mL/min (>60); Estimated Creatinine Clearance 71.02 ml/min; Glucose 128 mg/dL (74-106); Magnesium 1.7 mg/dL (1.6-2.6); Phosphorus 1.8 mg/dL (2.5-4.9); Potassium 3.8 mmol/L (3.5-5.1); Sodium Level 145 mmol/L (136-145)
[2023-05-21 05:52] LABS: Anisocytosis 1+; Macrocytosis 2+; Platelet Estimate SLT DEC (ADEQ)
--- NOTE | 2023-05-21 07:20 | PCM.PN.HOSP ---
Reason for Visit Reason for Visit: Diagnoses Sepsis, unspecified organism (05/19/23) Elevated white blood cell count, unspecified (05/19/23) Acidosis, unspecified (05/19/23) Hyperkalemia (05/19/23) Other toxic encephalopathy (05/19/23) Pneumonitis due to inhalation of food and vomit (05/19/23) Acute respiratory failure with hypoxia (05/19/23) Acute kidney failure, unspecified (05/19/23) Nausea with vomiting, unspecified (05/19/23) Dysphagia, unspecified (05/19/23) Severe sepsis with septic shock (05/19/23) Subjective Subjective Noted gurgling. Lactulose administered via NG. Objective Data Objective Data Vital Signs: Vital Signs Temp Pulse Resp BP Pulse Ox O2 Del Method O2 Flow Rate 37.2 C 95 18 140/97 H 94 Nasal Cannula 2 05/21/23 06:00 05/21/23 06:52 05/21/23 06:52 05/21/23 06:00 05/21/23 06:52 05/21/23 06:52 05/21/23 06:52 FiO2 3 05/19/23 23:59 Oxygen Flow Rate (L/min) 2 Oxygen Delivery Method Nasal Cannula Weight: 104.8 kg Body Mass Index (BMI) 30.6 Intake & Output: Intake and Output for Last 24 Hours 05/19/23 05/20/23 05/21/23 23:59 23:59 23:59 Intake Total 2965.7 / 2965.7 2379.82 / 2441.07 161.25 / 161.25 Output Total 975 / 1150 375 / 375 Balance 2965.7 / 2965.7 1404.82 / 1291.07 -213.75 / -213.75 Lab / Micro Data 05/21/23 04:25 05/21/23 04:25 Labs: Laboratory Results - last 24 hr 05/20/23 09:55: MRSA (PCR) Negative 05/20/23 10:03: Lactic Acid 1.9 05/20/23 10:10: Ammonia 56.0 H 05/20/23 11:13: POC Glucose 116 H 05/20/23 17:35: POC Glucose 126 H 05/21/23 00:04: POC Glucose 140 H 05/21/23 04:25: WBC 5.1, RBC 3.60 L, Hgb 11.1 L, Hct 36.6 L, MCV 101.7 H, MCH 30.8, MCHC 30.3 L, RDW Std Deviation 58.4 H, RDW Coeff of Bobby 15.4 H, Plt Count 126 L, MPV 9.5, Immature Gran % (Auto) 0.200, Neut % (Auto) 57.0, Lymph % (Auto) 22.5, [place] % (Auto) 19.3 H, Eos % (Auto) 0.4, Baso % (Auto) 0.6, Absolute Neuts (auto) 2.9, Absolute Lymphs (auto) 1.14, Nucleated RBC % 0, Platelet Estimate SLT DEC, Anisocytosis 1+, Macrocytosis 2+, Sodium 145, Potassium 3.8, Chloride 115 H, Carbon Dioxide 24.0, Anion Gap 6, BUN 17, Creatinine 1.00, Estim Creat Clear Calc 71.02, Est GFR (MDRD) Af Amer 94, Est GFR (MDRD) Non-Af 77, BUN/Creatinine Ratio 17.0, Glucose 128 H, Calcium 7.7 L, Phosphorus 1.8 L, Magnesium 1.7 Micro: Microbiology 05/20/23 11:20 Urine Catheter - Catheter Legionella Antigen - Final 05/20/23 11:20 Urine Catheter - Catheter Streptococcus pneumoniae Antigen (M - Final Physical Exam Const Constitutional Narrative: opens eyes to voice. Resp Resp Narrative: coarse BS bilaterally. Cardio regular rate, regular rhythm, S1 normal heart sound and S2 normal heart sound GI normal to inspection, nondistended, normoactive bowel sounds, soft to palpation and non-tender GI Narrative: distended. Assessment & Plan Assessment/Plan (1) Septic shock: PLAN: POA, subsequently resolved. Patient with fever, leukocytosis, tachypnea, acute hypoxic respiratory failure, elevated lactate that was refractory to fluid resuscitation at 30 cc/kg body weight Pressors were initiated, since weaned off Suspected source is aspiration but definitive work-up is in progress UA is not suggestive of infection Sputum culture pending Strep pneumo and Legionella antigens are negative Blood cultures are pending Chest x-ray shows poor inspiratory effort. Cannot rule out pneumonia. We will broaden antibiotics to Zosyn and vancomycin for now until cultures are finalized (2) Acute respiratory failure with hypoxia: PLAN: Patient with tachypnea and hypoxia on presentation initially required up titration to 15 L and then nonrebreather at 100% Patient has now been weaned to room air Continue NT suctioning as needed as patient appears to be having difficulty can trolling and managing his secretions Start inhaled Mucomyst Add vest therapy Patient is not oxygen dependent at baseline Pulmonary toilet (3) Toxic metabolic encephalopathy: PLAN: POA, patient was not responsive on presentation Suspect more metabolic given septic shock, but also complicated by meds (pt takes gabapentin at baseline) Patient with dementia at baseline and is at risk for hospital acquired delirium Continue to monitor would avoid atypical antipsychotics and Haldol as this could lower seizure threshold Hold gabapentin (risk >> benefits) Ammonia 56. On lactulose via NG. (4) Acidosis, lactic: PLAN: Resolved 2/2 to septic shock (5) Leukocytosis: PLAN: Resolved 2/2 septic shock (6) JOAQUIM (acute kidney injury): PLAN: Resolved Baseline serum creatinine appears to be between 0.8 and 1 Current serum creatinine is 1.46--> suspect mild ischemic ATN We will continue IV fluids with normal saline at 75 cc/h (7) Dysphagia: QUALIFIERS: Dysphagia type: unspecified Qualified Code(s): R13.10 - Dysphagia, unspecified PLAN: Highly concern for aspiration pneumonia Consult speech therapy NG tube in place right now for medication administration May need to pull NG as this would likely make his swallowing appear worse than it actually is (8) Hyperkalemia: PLAN: resolved likely lab error as sample was hemolyzed no additional work up. PLAN: Plan Chronic conditions: DM-2-On Trulicity at baseline-Trulicity on hold-Start sliding scale [id number] Q6 History of seizure disorder-Start Trileptal-Restart valproic acid-Both via NG-Discontinue Keppra History of gout-Restart febuxostat once able Depression-Hold Lexapro for now Hyperlipidemia-Hold to restart now Dementia DVT prophylaxis -Lovenox 40 daily CODE STATUS Been DNR CCA with no intubation Charges/Coding Visit Charges Inpatient E&M: 79820 Subs Hosp L2
--- NOTE | 2023-05-21 09:22 | CASEMGMT ---
Social Work POA for Healthcare in [facility], Tanya Lobo, pt's niece, is listed as Healthcare POA. Pt does not have a living will on file. JULIANNE Appiah
[2023-05-21] MEDS: OXcarbazepine 600 MG Tablet PO (09:34)
[2023-05-21 11:23] LABS: Bedside Glucose 101 mg/dL (74-106)
[2023-05-21] MEDS: 0.9% Normal Saline 1,000 ML 75 ML IV ×2 (13:04)
[2023-05-21 13:34] LABS: Pathologist Review Reviewed
--- NOTE | 2023-05-21 14:14 | CASEMGMT ---
NATASHA called patient's niece Tanya who is patient's Healthcare Power of Ccnp and left her a voice mail requesting a return call regarding d/c plan. Anne Simpson CENTRIFUGE OPERATOREverton KENDALL
[2023-05-21 14:52] LABS: Bedside Glucose 123 mg/dL (74-106)
--- NOTE | 2023-05-21 14:52 | CASEMGMT ---
Discharge Planning Patient resides at [facility] and will return. Updates sent via [facility]. Belkys Shin, Discharge Planning Asst.
[2023-05-21 19:02] LABS: Bedside Glucose 109 mg/dL (74-106)
--- NOTE | 2023-05-21 22:45 | RAD_ITS ---
INDICATION: ng placement EXAMINATION/TECHNIQUE: X-RAY - XR Abdomen 1 View COMPARISON: XR abdomen from the previous day. FINDINGS: A frontal view of the chest and a frontal view of the abdomen was obtained. The NG tube is been removed. The cardiac silhouette is borderline enlarged. Atelectasis in the lower lungs bilaterally with possible superimposed mild airspace disease. Small right pleural effusion and possible small left pleural effusion as well as bilateral pleural scarring. No pneumothorax. No dilated loops of small bowel. No gross free air. RAD/Abdomen Single View (Portable) IMPRESSION: NG tube has been removed. Atelectasis in the lower lungs bilaterally with possible superimposed mild infection. Small right pleural effusion. Electronically Signed: Alex Ken MD at 23:44 EDT ,
[2023-05-21 23:29] LABS: Vancomycin, Trough Level 12.5 ug/mL (5.0-15.0)
--- NOTE | 2023-05-21 23:59 | PCM.RX.CS ---
Consult Antibiotic Management Pharmacy has been consulted to manage selected antiobiotic: Vancomycin Type of Intervention Type of Consult: Follow-up Labs Labs: Sodium 145 mmol/L (136-145) 05/21/23 04:25 Potassium 3.8 mmol/L (3.5-5.1) 05/21/23 04:25 Chloride 115 mmol/L (98-107) H 05/21/23 04:25 Carbon Dioxide 24.0 mmol/L (21.0-32.0) 05/21/23 04:25 Anion Gap 6 (5-15) 05/21/23 04:25 BUN 17 mg/dL (7-18) 05/21/23 04:25 Creatinine 1.00 mg/dL (0.70-1.30) 05/21/23 04:25 Est GFR (MDRD) Af Amer 94 mL/min (>60) 05/21/23 04:25 Est GFR (MDRD) Non-Af 77 mL/min (>60) 05/21/23 04:25 BUN/Creatinine Ratio 17.0 RATIO (10-20) 05/21/23 04:25 Glucose 128 mg/dL (74-106) H 05/21/23 04:25 Vancomycin Trough 12.5 ug/mL (5.0-15.0) 05/21/23 22:44 Microbiology Microbiology: Microbiology 05/20/23 09:55 Sputum, Induced/Lukens Gram Stain - Final 05/20/23 09:55 Sputum, Induced/Lukens Respiratory Culture - Preliminary Culture exhibits no growth. 05/20/23 11:20 Urine Catheter - Garvey Urine Culture - Preliminary Culture exhibits no growth. 05/20/23 11:20 Urine Catheter - Catheter Legionella Antigen - Final 05/20/23 11:20 Urine Catheter - Catheter Streptococcus pneumoniae Antigen (M - Final Dosing Weight Weight used for dosin.8 kg Estimated Creatinine Clearance Estimated Creatinine Clearance: 71 Goal Trough Goal Trough: 15-20 mcg/mL Pharmacy Plan for Drug Dosing Pharmacy Plan for Drug Dosing: Vancomycin trough level, drawn 11.75hrs post-dose, was 12.5. This was below the target range of 15-20, owing partly to the increase in renal function (SCr from 1.46 to 1.00). The vanco dose will be increased to 1000mg q12h, and another trough will be drawn prior to the fourth dose of the new regimen. Pharmacy Service will continue to monitor and adjust dosing as required. Follow-Up Labs Follow-Up Labs: Trough: Vancomycin Date/Time Labs Ordered Labs to be done on [date and time ordered]: 05/23/23 @1159
[2023-05-22] VITALS (12 sets, daily range): BP systolic 100–116; BP diastolic 57–69; PULSE 94–109; RESP 15–21; TEMP 36.6–37.1; O2SAT 83–100; BMI 30.5
[2023-05-22] MEDS: Vancomycin IV 1,000 MG/200 ML BAG 200 MG IV ×2 (01:04→13:33)
[2023-05-22 01:25] LABS: Bedside Glucose 127 mg/dL (74-106)
[2023-05-22] MEDS: Ipratropium/Albuterol Sulfate 3 ML AMPUL.NEB INHALATION ×4 (01:47→20:29)
[2023-05-22] MEDS: Acetylcysteine 800 MG/4 ML VIAL.NEB. INHALATION ×2 (01:47→12:19)
[2023-05-22] MEDS: Ondansetron 4 MG/2 ML Vial IV ×2 (03:42→10:31)
[2023-05-22 06:37] LABS: Bedside Glucose 99 mg/dL (74-106)
--- NOTE | 2023-05-22 07:49 | PN.HOSP_ITS ---
Reason for Visit Reason for Visit: Diagnoses Sepsis, unspecified organism (05/19/23) Elevated white blood cell count, unspecified (05/19/23) Acidosis, unspecified (05/19/23) Hyperkalemia (05/19/23) Other toxic encephalopathy (05/19/23) Pneumonitis due to inhalation of food and vomit (05/19/23) Acute respiratory failure with hypoxia (05/19/23) Acute kidney failure, unspecified (05/19/23) Nausea with vomiting, unspecified (05/19/23) Dysphagia, unspecified (05/19/23) Severe sepsis with septic shock (05/19/23) Subjective Subjective Pulled out NGT. Objective Data Objective Data Vital Signs: Vital Signs Temp Pulse Resp BP Pulse Ox O2 Del Method O2 Flow Rate 36.6 C 109 H 20 H 116/69 100 Nasal Cannula 2 05/22/23 03:44 05/22/23 03:44 05/22/23 03:44 05/22/23 03:44 05/22/23 03:44 05/22/23 03:46 05/22/23 03:46 FiO2 3 05/19/23 23:59 Oxygen Flow Rate (L/min) 2 Oxygen Delivery Method Nasal Cannula Weight: 105.1 kg Body Mass Index (BMI) 30.5 Intake & Output: Intake and Output for Last 24 Hours 05/20/23 05/21/23 05/22/23 23:59 23:59 23:59 Intake Total 2379.82 / 2441.07 1766.25 / 1766.25 1250 / 1250 Output Total 975 / 1150 825 / 825 550 / 550 Balance 1404.82 / 1291.07 941.25 / 941.25 700 / 700 Lab / Micro Data 05/22/23 07:53 05/22/23 07:14 Labs: Laboratory Results - last 24 hr 05/20/23 04:30: Diff Path Review Reviewed 05/21/23 05:06: POC Glucose 123 H 05/21/23 11:02: POC Glucose 101 05/21/23 18:33: POC Glucose 109 H 05/21/23 22:44: Vancomycin Trough 12.5 05/22/23 01:08: POC Glucose 127 H 05/22/23 06:20: POC Glucose 99 05/22/23 07:14: WBC Cancelled, Corrected WBC Cancelled, RBC Cancelled, Hgb Cancelled, Hct Cancelled, MCV Cancelled, MCH Cancelled, MCHC Cancelled, RDW Std Deviation Cancelled, RDW Coeff of Bobby Cancelled, Plt Count Cancelled, MPV Cancelled, Immature Gran % (Auto) Cancelled, Neut % (Auto) Cancelled, Lymph % (Auto) Cancelled, [place] % (Auto) Cancelled, Eos % (Auto) Cancelled, Baso % (Auto) Cancelled, Absolute Neuts (auto) Cancelled, Absolute Lymphs (auto) Cancelled, Total Counted Cancelled, Neutrophils % (Manual) Cancelled, Band Neutrophils % Cancelled, Lymphocytes % (Manual) Cancelled, Monocytes % (Manual) Cancelled, Eosinophils % (Manual) Cancelled, Basophils % (Manual) Cancelled, Metamyelocytes % Cancelled, Myelocytes % Cancelled, Promyelocytes % Cancelled, Blast Cells % Cancelled, Plasma Cell % (Manual) Cancelled, Other Cells % Cancelled, Nucleated RBC % Cancelled, Nucleated RBCs/100 WBC Cancelled, Differential Comment Cancelled, Diff Path Review Cancelled, Hypersegmented Neuts Cancelled, Atypical Lymphocytes Cancelled, Reactive Lymphocytes Cancelled, Smudge Cells Cancelled, Toxic Granulation Cancelled, Toxic Vacuolation Cancelled, Dohle Bodies Cancelled, Murali Rods Cancelled, Platelet Estimate Cancelled, Plt Morphology Comment Cancelled, RBC Morphology Cancelled 05/22/23 07:14: RBC Morphology Cancelled, Polychromasia Cancelled, Hypochromasia Cancelled, Poikilocytosis Cancelled, Basophilic Stippling Cancelled, Anisoc ytosis Cancelled, Microcytosis Cancelled, Macrocytosis Cancelled, Spherocytes Cancelled, Sickle Cells Cancelled, Target Cells Cancelled, Tear Drop Cells Cancelled, Ovalocytes Cancelled, Stomatocytes Cancelled, Marina-Jakin Bodies Cancelled, Ofe Cells Cancelled, Bite Cells Cancelled, Crenated Cell Cancelled, Acanthocytes (Spur) Cancelled, Rouleaux Cancelled, Schistocytes Cancelled Micro: Microbiology 05/20/23 11:20 Urine Catheter - Garvey Urine Culture - Final Culture exhibits no growth. 05/20/23 09:55 Sputum, Induced/Lukens Gram Stain - Final 05/20/23 09:55 Sputum, Induced/Lukens Respiratory Culture - Final Mixed normal respiratory crys. No Streptococcus pneumoniae, beta-hemolytic Streptococcus or Staphylococcus aureus isolated. 05/19/23 21:05 Blood Culture (Wb) - Right Forearm Blood Culture - Preliminary No growth in 48 hours. 05/19/23 21:45 Blood Culture (Wb) - Right Forearm Blood Culture - Preliminary No growth in 48 hours. 05/20/23 11:20 Urine Catheter - Catheter Legionella Antigen - Final 05/20/23 11:20 Urine Catheter - Catheter Streptococcus pneumoniae Antigen (M - Final Radiography Diagnostic Testing: Radiology Impression KUB X-Ray 05/21/23 22:45 IMPRESSION: NG tube has been removed. Atelectasis in the lower lungs bilaterally with possible superimposed mild infection. Small right pleural effusion. Electronically Signed: Alex Ken MD at 23:44 EDT , Physical Exam Const Constitutional Narrative: confused. more alert but still profoundly confused. Speech is more comprehensible, but poor throat clearance. Psych affect normal Assessment & Plan Assessment/Plan (1) Septic shock: PLAN: POA, subsequently resolved. Patient with fever, leukocytosis, tachypnea, acute hypoxic respiratory failure, elevated lactate that was refractory to fluid resuscitation at 30 cc/kg body weight Pressors were initiated, since weaned off Suspected source is aspiration but definitive work-up is in progress UA is not suggestive of infection Sputum culture pending Strep pneumo and Legionella antigens are negative Blood cultures are pending Chest x-ray shows poor inspiratory effort. Cannot rule out pneumonia. Continue antibiotics w Zosyn and vancomycin (2) Acute respiratory failure with hypoxia: PLAN: Patient with tachypnea and hypoxia on presentation initially required up titration to 15 L and then nonrebreather at 100% Patient has now been weaned to room air Continue NT suctioning as needed as patient appears to be having difficulty can trolling and managing his secretions Start inhaled Mucomyst Add vest therapy Patient is not oxygen dependent at baseline Pulmonary toilet (3) Toxic metabolic encephalopathy: PLAN: POA, patient was not responsive on presentation Suspect more metabolic given septic shock, but also complicated by meds (pt takes gabapentin at baseline) Patient with dementia at baseline and is at risk for hospital acquired delirium Continue to monitor would avoid atypical antipsychotics and Haldol as this could lower seizure threshold Hold gabapentin (risk >> benefits) NGT removed by patient. I would not replace at this time given his ongoing confusion and high likelihood of removal again. Ammonia level was up, but I do not feel that this is entirely hepatic encephalopathy. (4) Acidosis, lactic: PLAN: Resolved 2/2 to septic shock (5) Leukocytosis: QUALIFIERS: Leukocytosis type: unspecified Qualified Code(s): D72.829 - Elevated white blood cell count, unspecified PLAN: Resolved 2/2 septic shock (6) JOAQUIM (acute kidney injury): PLAN: Resolved Baseline serum creatinine appears to be between 0.8 and 1 Current serum creatinine is 1.46--> suspect mild ischemic ATN We will continue IV fluids with normal saline at 75 cc/h (7) Dysphagia: QUALIFIERS: Dysphagia type: unspecified Qualified Code(s): R13.10 - Dysphagia, unspecified PLAN: Highly concern for aspiration pneumonia Consult speech therapy NG tube in place right now for medication administration May need to pull NG as this would likely make his swallowing appear worse than it actually is (8) Hyperkalemia: PLAN: resolved likely lab error as sample was hemolyzed no additional work up. PLAN: Plan Chronic conditions: * DM-2-On Trulicity at baseline-Trulicity on hold-Start sliding scale [id number] Q6 * History of seizure disorder-Start Trileptal-Restart valproic acid-Both via NG- Discontinue Keppra * History of gout-Restart febuxostat once able * Depression-Hold Lexapro for now * Hyperlipidemia-Hold to restart now * Dementia DVT prophylaxis -Lovenox 40 daily CODE STATUS DNR CCA with no intubation Charges/Coding Visit Charges Inpatient E&M: 05518 Subs Hosp L2
[2023-05-22 08:13] LABS: Absolute Neutrophil Count 3.3 X10^3/uL (2.0-7.7); Basophil# 0.03 X10^3/uL; Basophil% 0.5 % (0-1); Eosinophil# 0.02 X10^3/uL; Eosinophils% 0.3 % (0-5); Hematocrit 39.8 % (40-54); Hemoglobin 12.3 g/dL (13.0-16.5); Lymphocyte % 21.6 % (19-41); Mean Corp Hgb Conc 30.9 g/dL (32-36); Mean Corpuscular Hgb 30.9 pg (27.0-32.0); Mean Platelet Vol. 9.2 fl (6.2-12.0); Monocyte# 1.35 X10^3/uL; Monocyte% 22.4 % (0-10); NRBC Flagged by Analyzer 0 % (0-5); Neutrophil # 3.28 X10^3/uL (2.7-7.7); Neutrophil % 54.4 % (47-70); Platelet Count 131 K/mm3 (150-450); RBC Distribution Width CV 15.4 % (11.6-14.6); RBC Distribution Width SD 56.4 fl (35.1-43.9); Red Blood Count 3.98 M/mm3 (4.6-6.2)
[2023-05-22 08:39] LABS: Anion Gap 4 (5-15); BUN 12 mg/dL (7-18); BUN/Creat Ratio 13.3 RATIO (10-20); Calcium,Total 9.1 mg/dL (8.5-10.1); Chloride 113 mmol/L (98-107); EST Glomerular Filtration Rate 87 mL/min (>60); Est Glom Filt Rate - Afr Amer 105 mL/min (>60); Estimated Creatinine Clearance 78.91 ml/min; Glucose 109 mg/dL (74-106); Potassium 3.7 mmol/L (3.5-5.1); Sodium Level 143 mmol/L (136-145)
[2023-05-22] MEDS: 0.9% Saline Lock 10 ML Syringe IV (10:31)
[2023-05-22 12:54] LABS: Bedside Glucose 98 mg/dL (74-106)
[2023-05-22] MEDS: 0.9% Normal Saline 1,000 ML 75 ML IV (13:33)
[2023-05-22 17:47] LABS: Bedside Glucose 126 mg/dL (74-106)
[2023-05-23] VITALS (12 sets, daily range): BP systolic 102–143; BP diastolic 59–76; PULSE 78–98; RESP 15–22; TEMP 36–36.6; O2SAT 89–99
[2023-05-23 00:27] LABS: Bedside Glucose 135 mg/dL (74-106)
[2023-05-23] MEDS: Vancomycin IV 1,000 MG/200 ML BAG 200 MG IV (00:30)
[2023-05-23] MEDS: 0.9% Saline Lock 10 ML Syringe IV (00:30)
[2023-05-23 06:38] LABS: Bedside Glucose 102 mg/dL (74-106)
[2023-05-23 07:29] LABS: Absolute Lymphocyte Count 0.83 X10^3/uL (0.83-4.51); Absolute Neutrophil Count 4.7 X10^3/uL (2.0-7.7); Basophil# 0.02 X10^3/uL; Basophil% 0.3 % (0-1); Eosinophil# 0.07 X10^3/uL; Hematocrit 38.6 % (40-54); Lymphocyte # 0.83 X10^3/ul (0.83-4.51); Lymphocyte % 12.2 % (19-41); Mean Corp Hgb Conc 31.1 g/dL (32-36); Mean Corpuscular Hgb 30.8 pg (27.0-32.0); Mean Platelet Vol. 9.4 fl (6.2-12.0); Monocyte# 1.17 X10^3/uL; Monocyte% 17.2 % (0-10); NRBC Flagged by Analyzer 0 % (0-5); Neutrophil % 68.9 % (47-70); Platelet Count 138 K/mm3 (150-450); RBC Distribution Width CV 15.1 % (11.6-14.6); RBC Distribution Width SD 55.5 fl (35.1-43.9); White Blood Count 6.8 K/mm3 (4.4-11.0)
[2023-05-23] MEDS: Ipratropium/Albuterol Sulfate 3 ML AMPUL.NEB INHALATION ×2 (07:40→19:28)
[2023-05-23] MEDS: Acetylcysteine 800 MG/4 ML VIAL.NEB. INHALATION ×2 (07:41→19:28)
[2023-05-23 07:48] LABS: ALB/GLOB Ratio 0.5 RATIO (0.9-2.4); AST(SGOT) 33 U/L (15-37); Alanine Aminotransfer ALT/SGPT 27 U/L (16-61); Albumin, Serum 2.2 g/dL (3.2-5.0); Alkaline Phosphatase 57 U/L (45-117); Anion Gap 4 (5-15); BUN 14 mg/dL (7-18); BUN/Creat Ratio 10.8 RATIO (10-20); Calcium,Total 8.6 mg/dL (8.5-10.1); Chloride 114 mmol/L (98-107); EST Glomerular Filtration Rate 57 mL/min (>60); Est Glom Filt Rate - Afr Amer 69 mL/min (>60); Estimated Creatinine Clearance 54.63 ml/min; Globulin 4.4 g/dL (2.2-4.2); Glucose 111 mg/dL (74-106); Potassium 3.7 mmol/L (3.5-5.1); Protein, Total 6.6 g/dL (6.4-8.2); Sodium Level 146 mmol/L (136-145)
--- NOTE | 2023-05-23 08:26 | PN.HOSP_ITS ---
Reason for Visit Reason for Visit: Diagnoses Sepsis, unspecified organism (05/19/23) Elevated white blood cell count, unspecified (05/19/23) Acidosis, unspecified (05/19/23) Hyperkalemia (05/19/23) Other toxic encephalopathy (05/19/23) Pneumonitis due to inhalation of food and vomit (05/19/23) Acute respiratory failure with hypoxia (05/19/23) Acute kidney failure, unspecified (05/19/23) Nausea with vomiting, unspecified (05/19/23) Dysphagia, unspecified (05/19/23) Severe sepsis with septic shock (05/19/23) Subjective Subjective I want to eat Objective Data Objective Data Vital Signs: Vital Signs Temp Pulse Resp BP Pulse Ox O2 Del Method O2 Flow Rate 36.5 C L 89 18 115/66 99 Nasal Cannula 2 05/23/23 05:58 05/23/23 05:58 05/23/23 05:58 05/23/23 05:58 05/23/23 05:58 05/23/23 05:58 05/23/23 05:58 FiO2 3 05/19/23 23:59 Oxygen Flow Rate (L/min) 2 Oxygen Delivery Method Nasal Cannula Weight: 105.1 kg Body Mass Index (BMI) 30.5 Intake & Output: Intake and Output for Last 24 Hours 05/21/23 05/22/23 05/23/23 23:59 23:59 23:59 Intake Total 1766.25 / 1766.25 1918.75 / 1918.75 251.25 / 251.25 Output Total 825 / 825 1050 / 1050 150 / 150 Balance 941.25 / 941.25 868.75 / 868.75 101.25 / 101.25 Lab / Micro Data 05/23/23 06:55 05/23/23 06:55 Labs: Laboratory Results - last 24 hr 05/22/23 07:14: Sodium 143, Potassium 3.7, Chloride 113 H, Carbon Dioxide 26.0, Anion Gap 4 L, BUN 12, Creatinine 0.90, Estim Creat Clear Calc 78.91, Est GFR (MDRD) Af Amer 105, Est GFR (MDRD) Non-Af 87, BUN/Creatinine Ratio 13.3, Glucose 109 H, Calcium 9.1 05/22/23 11:45: POC Glucose 98 05/22/23 17:26: POC Glucose 126 H 05/22/23 23:53: POC Glucose 135 H 05/23/23 06:14: POC Glucose 102 05/23/23 06:55: WBC 6.8, RBC 3.90 L, Hgb 12.0 L, Hct 38.6 L, MCV 99.0 H, MCH 30.8, MCHC 31.1 L, RDW Std Deviation 55.5 H, RDW Coeff of Bobby 15.1 H, Plt Count 138 L, MPV 9.4, Immature Gran % (Auto) 0.400, Neut % (Auto) 68.9, Lymph % (Auto) 12.2 L, [place] % (Auto) 17.2 H, Eos % (Auto) 1.0, Baso % (Auto) 0.3, Absolute Neuts (auto) 4.7, Absolute Lymphs (auto) 0.83, Nucleated RBC % 0, Sodium 146 H, Potassium 3.7, Chloride 114 H, Carbon Dioxide 28.0, Anion Gap 4 L, BUN 14, Creatinine 1.30, Estim Creat Clear Calc 54.63, Est GFR (MDRD) Af Amer 69, Est GFR (MDRD) Non-Af 57 L, BUN/Creatinine Ratio 10.8, Glucose 111 H, Calcium 8.6, Total Bilirubin 0.50, AST 33, ALT 27, Alkaline Phosphatase 57, Total Protein 6.6, Albumin 2.2 L, Globulin 4.4 H, Albumin/Globulin Ratio 0.5 L Micro: Microbiology 05/20/23 11:20 Urine Catheter - Garvey Urine Culture - Final Culture exhibits no growth. 05/20/23 09:55 Sputum, Induced/Lukens Gram Stain - Final 05/20/23 09:55 Sputum, Induced/Lukens Respiratory Culture - Final Mixed normal respiratory crys. No Streptococcus pneumoniae, beta-hemolytic Streptococcus or Staphylococcus aureus isolated. 05/19/23 21:05 Blood Culture (Wb) - Right Forearm Blood Culture - Preliminary No growth in 48 hours. 05/19/23 21:45 Blood Culture (Wb) - Right Forearm Blood Culture - Preliminary No growth in 48 hours. 05/20/23 11:20 Urine Catheter - Catheter Legionella Antigen - Final 05/20/23 11:20 Urine Catheter - Catheter Streptococcus pneumoniae Antigen (M - Final Physical Exam Const alert and no apparent distress Constitutional Narrative: Drooling on his face. Mouthful of saliva. HEENT head/scalp atraumatic and moist oral mucous membranes Neck no lymphadenopathy and supple Resp Resp Narrative: Coarse breath sounds bilaterally Cardio regular rate and regular rhythm Neuro oriented x3 and CN's II-XII intact bilaterally Assessment & Plan Assessment/Plan (1) Septic shock: PLAN: POA, subsequently resolved. Patient with fever, leukocytosis, tachypnea, acute hypoxic respiratory failure, elevated lactate that was refractory to fluid resuscitation at 30 cc/kg body weight Pressors were initiated, since weaned off Suspected source is aspiration but definitive work-up is in progress UA is not suggestive of infection Sputum culture pending Strep pneumo and Legionella antigens are negative Blood cultures are pending Chest x-ray shows poor inspiratory effort. Cannot rule out pneumonia. Continue antibiotics w Zosyn and vancomycin (2) Acute respiratory failure with hypoxia: PLAN: Patient with tachypnea and hypoxia on presentation initially required up titration to 15 L and then nonrebreather at 100% Patient has now been weaned to room air Continue NT suctioning as needed as patient appears to be having difficulty can trolling and managing his secretions Start inhaled Mucomyst Add vest therapy Patient is not oxygen dependent at baseline Pulmonary toilet (3) Toxic metabolic encephalopathy: PLAN: POA, patient was not responsive on presentation Suspect more metabolic given septic shock, but also complicated by meds (pt takes gabapentin at baseline) Patient with dementia at baseline and is at risk for hospital acquired delirium Continue to monitor would avoid atypical antipsychotics and Haldol as this could lower seizure threshold Hold gabapentin (risk >> benefits) NGT removed by patient. I would not replace at this time given his ongoing confusion and high likelihood of removal again. Ammonia level was up, but I do not feel that this is entirely hepatic encephalopathy. (4) Acidosis, lactic: PLAN: Resolved 2/2 to septic shock (5) Leukocytosis: QUALIFIERS: Leukocytosis type: unspecified Qualified Code(s): D72.829 - Elevated white blood cell count, unspecified PLAN: Resolved 2/2 septic shock (6) JOAQUIM (acute kidney injury): PLAN: Resolved Baseline serum creatinine appears to be between 0.8 and 1 Current serum creatinine is 1.46--> suspect mild ischemic ATN We will continue IV fluids with normal saline at 75 cc/h (7) Dysphagia: QUALIFIERS: Dysphagia type: unspecified Qualified Code(s): R13.10 - Dysphagia, unspecified PLAN: Highly concern for aspiration pneumonia Consult speech therapy Patient clearly not protecting his airway. I discussed with the patient's niece and informed her that the best way to prevent further aspiration events is placed PEG tube. I told her that may not provide the patient quality of life and actually discouraged that. She was in agreement. We will add glycopyrrolate to help with secretions. (8) Hyperkalemia: PLAN: resolved likely lab error as sample was hemolyzed no additional work up. PLAN: Plan Chronic conditions: * DM-2-On Trulicity at baseline-Trulicity on hold-Start sliding scale [id number] Q6 * History of seizure disorder-Start Trileptal-Restart valproic acid-Both via NG- Discontinue Keppra * History of gout-Restart febuxostat once able * Depression-Hold Lexapro for now * Hyperlipidemia-Hold to restart now * Dementia DVT prophylaxis -Lovenox 40 daily CODE STATUS DNR CCA with no intubation Advance care planning: Spent additional 20 minutes discussing with the patient's niece, Tanya Lobo, about feeding tubes, indication for feeding tubes and my recommendation for quality of life. She is agreement that feeding tube would not be what he would want and also is agreeable to meeting with palliative care upon discharge to help with his symptoms. Charges/Coding Visit Charges Inpatient E&M: 93278 Subs Hosp L2 Procedures Hospitalists Procedures: 28092 Advncd Care Plan 30 Min
[2023-05-23 12:25] LABS: Bedside Glucose 101 mg/dL (74-106)
[2023-05-23 12:48] LABS: Vancomycin, Trough Level 22.3 ug/mL (5.0-15.0)
--- NOTE | 2023-05-23 13:07 | PCM.RX.CS ---
Consult Antibiotic Management Pharmacy has been consulted to manage selected antiobiotic: Vancomycin Type of Intervention Type of Consult: Follow-up Suspected Infection Suspected Infection: Sepsis and Pneumonia Prior Doses of Antibiotics Prior Doses of Antibiotics Received/Current Regimen: PATIENT RECEIVED VANCOMYCIN 1 G Q12H X 3 DOSES Labs Labs: Sodium 146 mmol/L (136-145) H 05/23/23 06:55 Potassium 3.7 mmol/L (3.5-5.1) 05/23/23 06:55 Chloride 114 mmol/L (98-107) H 05/23/23 06:55 Carbon Dioxide 28.0 mmol/L (21.0-32.0) 05/23/23 06:55 Anion Gap 4 (5-15) L 05/23/23 06:55 BUN 14 mg/dL (7-18) 05/23/23 06:55 Creatinine 1.30 mg/dL (0.70-1.30) 05/23/23 06:55 Est GFR (MDRD) Af Amer 69 mL/min (>60) 05/23/23 06:55 Est GFR (MDRD) Non-Af 57 mL/min (>60) L 05/23/23 06:55 BUN/Creatinine Ratio 10.8 RATIO (10-20) 05/23/23 06:55 Glucose 111 mg/dL (74-106) H 05/23/23 06:55 Vancomycin Trough 22.3 ug/mL (5.0-15.0) H 05/23/23 11:50 Microbiology Microbiology: Microbiology 05/20/23 11:20 Urine Catheter - Garvey Urine Culture - Final Culture exhibits no growth. 05/20/23 09:55 Sputum, Induced/Lukens Gram Stain - Final 05/20/23 09:55 Sputum, Induced/Lukens Respiratory Culture - Final Mixed normal respiratory crys. No Streptococcus pneumoniae, beta-hemolytic Streptococcus or Staphylococcus aureus isolated. 05/19/23 21:05 Blood Culture (Wb) - Right Forearm Blood Culture - Preliminary No growth in 48 hours. 05/19/23 21:45 Blood Culture (Wb) - Right Forearm Blood Culture - Preliminary No growth in 48 hours. 05/20/23 11:20 Urine Catheter - Catheter Legionella Antigen - Final 05/20/23 11:20 Urine Catheter - Catheter Streptococcus pneumoniae Antigen (M - Final Dosing Weight Weight used for dosin.1 kg Estimated Creatinine Clearance Estimated Creatinine Clearance: 54 Goal Trough Goal Trough: 15-20 mcg/mL Pharmacy Plan for Drug Dosing Pharmacy Plan for Drug Dosing: Pharmacy Service will continue to monitor and adjust dosing as required. Vancomycin trough high today at 22.3 ug/mL, will hold dose that was due at noon and midnight and get a random level tomorrow morning with AM labs @ 0600. Subsequent dose adjustments based on tomorrows AM labs and random vancomycin level. Follow-Up Labs Follow-Up Labs: Trough: Vancomycin (Random level 05/24 @ 0600 with Am labs) Date/Time Labs Ordered Labs to be done on [date and time ordered]: 05/24/23 @ 0600 with AM labs
--- NOTE | 2023-05-23 13:30 | CPS ---
q6 treatment missed due to patient out of room for testing.
--- NOTE | 2023-05-23 14:50 | ST.MBS ---
Modified Barium Swallow Patient Information Study Date: 05/23/23 Study Time: 13:30 Diagnosis: Sepsis A41.9,Pneumonitis J69.8,Acute resp. failure w/hypo.J96.01 Referring Physician: Edi Stephens Reason for Referral: Objectively assess swallow function, assess risk for aspiration, and determine recommendations for least restrictive diet textures and compensatory strategies to improve safety of swallow. Medical History: CAITY BECK, is a 78 M with a PMH of Anemia, CAD (coronary artery disease), CHF, COPD, Dementia, Diabetes, Former smoker, GERD (gastroesophageal reflux disease), HLD (hyperlipidemia), Idiopathic polyneuropathy, Mood disorder, Non-rheumatic tricuspid valve insufficiency and Seizures. See PMH in the H&P for full report. Patient presented to [facility] emergency department on 05/19/23 with nausea and vomiting. He is hypoxic. Reportedly his oxygen saturation was in the 70s. History was taken for emergent department doctor as patient was not talking at the time of history taking. Reportedly patient has been unable to speak. Emergency department doctor reported that patient was rhonchorous on presentation but with suction his oxygen saturation improved. Patient referred for speech therapy evaluation on 05/20/23 due to concerns for aspiration PNA. Patient deemed not appropriate for speech evaluation on 05/20/23. Patient evaluated on 05/21/23 and recommended to remain NPO due to overt s/s of aspiration, and pt unable to clear his own oral secretions. Patient seen on 05/22/23 and recommended to remain NPO due to overt s/s of aspiration, and pt oxygen saturation dropping from 100% SpO2 to 89% after trial of ice chip; therefore, pt deemed not appropriate for MBSS on this date. Patient seen on 05/23/23 by RECORD TESTER. RN informed RECORD TESTER that hospitalist upgraded pt to PO trials for medications and PO intake for pleasure. RECORD TESTER to continue to recommend pt remain NPO d/t inability for pt to clear his own secretions, and poor respiratory status- pt rhonchorous throughout, and on 2L SpO2 via nasal cannula. RECORD TESTER recommended pt to participate in MBSS to assess risk/presence of aspiration on 05/23/23. Chest x-ray completed on 05/19/23 with bibasilar pulmonary infiltrates, probable pneumonia, and chronic pleural fibrotic thickening versus small effusions. KUB x-ray completed on 05/21/23 with NG tube removed, Atelectasis in the lower lungs bilaterally with possible superimposed mild infection, and small right pleural effusion. Current Diet Ordered: Puree Textures/ Honey (Moderately) Thick Liquids Dentition: Decay and Missing Teeth Mental Status: Impaired Respiratory Status: Oxygenating on 2L/M nasal cannula Penetration-Aspiration Scale Penetration-Aspiration Scale: OBJECTIVE ASSESSMENT OF SWALLOW FUNCTION (QUANTITATIVE ? PER TRIAL): PENETRATION / ASPIRATION SCALE (MACDONALD): 1 = does not enter airway 2 = enters airway/above vocal folds/ejected 3 = enters airway/above vocal folds/not ejected 4 = enters airway/contacts vocal folds/ejected 5 = enters airway/contacts vocal folds/not ejected 6 = enters airway/below vocal folds/ejected 7 = enters airway/below vocal folds/not ejected despite effort 8 = enters airway/below vocal folds/no effort VIDEOFLOROSCOPIC SCALE SCORE (MACDONALD): Grade I = aspiration of material that has penetrated into the laryngeal vestibule, intact cough reflex Grade II = aspiration < 10 % of the bolus, intact cough reflex Grade III = aspiration of < 10 % of the bolus, reduced cough reflex or aspiration of > 10 % of the bolus, intact cough reflex Grade IV = aspiration of > 10 % of the bolus, reduced cough reflex Penetration-Aspiration Scale Score Thin Liquid via teaspoon: Result: 3= enters airways/above vocal folds/not ejected Comment: Max verbal and visual cues for swallow onset. Thin Liquid via teaspoon Trial 2: Result: 1= does not enter airway Thin Liquid via cup sip: Result: 1= does not enter airway Comment: Post prandial penetration of previous trial. Thin Liquid via cup sip trial 2: Result: 1= does not enter airway Comment: Post prandial penetration of previous trial. Cued cough and re-swallow, with unreliable command following. Patient unable to follow re-swallow command. [place] Thick Liquid via cup sip : Result: 2= enter airway/above vocal folds/ejected Honey Thick Liquid via small cup sip : Comment: No initiation of swallow, patient vomited trial in emesis bag.
--- NOTE | 2023-05-23 15:19 | SP.MBSS_ITS ---
Modified Barium Swallow Patient Information Study Date: 05/23/23 Study Time: 13:30 Direct Billable Minutes: 120 Total Minutes procedure & reportin Diagnosis: Sepsis A41.9,Pneumonitis J69.8,Acute resp. fail. w/hypox J96.01 Referring Physician: Edi Stephens Reason for Referral: Objectively assess swallow function, assess risk for aspiration, and determine recommendations for least restrictive diet textures and compensatory strategies to improve safety of swallow. Medical History: CAITY BECK, is a 78 M with a PMH of Anemia, CAD (coronary artery disease), CHF, COPD, Dementia, Diabetes, Former smoker, GERD (gastroesophageal reflux disease), HLD (hyperlipidemia), Idiopathic polyneuropathy, Mood disorder, Non- rheumatic tricuspid valve insufficiency and Seizures. See PMH in the H&P for full report. Patient presented to [facility] emergency department on 05/19/23 with nausea and vomiting. He is hypoxic. Reportedly his oxygen saturation was in the 70s. History was taken for emergent department doctor as patient was not talking at the time of history taking. Reportedly patient has been unable to speak. Emergency department doctor reported that patient was rhonchorous on presentation but with suction his oxygen saturation improved. Patient referred for speech therapy evaluation on 05/20/23 due to concerns for aspiration PNA. Patient deemed not appropriate for speech evaluation on 05/20/23. Patient evaluated on 05/21/23 and recommended to remain NPO due to overt s/s of aspiration, and pt unable to clear his own oral secretions. Patient seen on 05/22/23 and recommended to remain NPO due to overt s/s of aspiration, and pt oxygen saturation dropping from 100% SpO2 to 89% after trial of ice chip; therefore, pt deemed not appropriate for MBSS on this date. Patient seen on 05/23/23 by ELECTRIC DRILL OPERATOR. RN informed ELECTRIC DRILL OPERATOR that hospitalist upgraded pt to PO trials for medications and PO intake for pleasure. ELECTRIC DRILL OPERATOR to continue to recommend pt remain NPO d/t inability for pt to clear his own secretions, and poor respiratory status- pt rhonchorous throughout, and on 2L SpO2 via nasal cannula. ELECTRIC DRILL OPERATOR recommended pt to participate in MBSS to assess risk/presence of aspiration on 05/23/23. Chest x-ray completed on 05/19/23 with bibasilar pulmonary infiltrates, probable pneumonia, and chronic pleural fibrotic thickening versus small effu sions. KUB x-ray completed on 05/21/23 with NG tube removed, Atelectasis in the lower lungs bilaterally with possible superimposed mild infection, and small right pleural effusion. Current Diet Ordered: Honey (Moderately) Thick Liquids/ Puree Textures Dentition: Decay and Missing Teeth Mental Status: Impaired Respiratory Status: Oxygenating on 2L/M nasal cannula Penetration-Aspiration Scale Penetration-Aspiration Scale: OBJECTIVE ASSESSMENT OF SWALLOW FUNCTION (QUANTITATIVE ? PER TRIAL): PENETRATION / ASPIRATION SCALE (MACDONALD): 1 = does not enter airway 2 = enters airway/above vocal folds/ejected 3 = enters airway/above vocal folds/not ejected 4 = enters airway/contacts vocal folds/ejected 5 = enters airway/contacts vocal folds/not ejected 6 = enters airway/below vocal folds/ejected 7 = enters airway/below vocal folds/not ejected despite effort 8 = enters airway/below vocal folds/no effort VIDEOFLOROSCOPIC SCALE SCORE (MACDONALD): Grade I = aspiration of material that has penetrated into the laryngeal vestibule, intact cough reflex Grade II = aspiration < 10 % of the bolus, intact cough reflex Grade III = aspiration of < 10 % of the bolus, reduced cough reflex or aspiration of > 10 % of the bolus, intact cough reflex Grade IV = aspiration of > 10 % of the bolus, reduced cough reflex Penetration-Aspiration Scale Score Thin Liquid via teaspoon: Result: 3= enters airways/above vocal folds/not ejected Comment: Unable to determine if patient aspirated trial due to patient's body habitus. Patient required max verbal and visual cues to initiate swallow onset. Thin Liquid via teaspoon Trial 2: Result: 1= does not enter airway Thin Liquid via small cup sip: Result: 1= does not enter airway Comment: Post prandial penetration of previous trial. Thin Liquid via small cup sip trial 2: Result: 1= does not enter airway Comment: Post prandial penetration of previous trial. Cued cough and re-swallow with unreliable command following. Patient had weak cough response and did not re- swallow. [place] Thick Liquid via small cup sip: Result: 2= enter airway/above vocal folds/ejected Honey Thick Liquid via small cup sip : Comment: No swallow onset, patient requiring emesis bag d/t patient vomiting. Vomit was white and frothy. Honey Thick Liquid via small cup sip: Result: 5= enters airways/contacts vocal folds/not ejected Comment: Unable to determine if patient aspirated due to patient's body habitus. Pudding via tsp w/esophageal screen : Result: 1= does not enter airway Comment: Unable to determine if penetration or aspiration occurred d/t patient's body habitus. Oral Phase Labial Seal: Escape progressing to mid-chin Tongue Control During Bolus Hold: Posterior escape of less than half of bolus Bolus Transport/Lingual Motion: Repetitive/disorganized tongue motion Oral Residue: Trace residue lining oral structures Pharyngeal Phase Initiation of Pharyngeal Swallow: Bolus head in pyriforms Soft Palate Elevation: Trace column of contrast/air between soft palate and pharyngeal wall Laryngeal Elevation: Partial superior movement thyroid cart/partial apprx aryt- epig petiole Anterior Hyoid Excursion: Partial anterior movement Epiglottic Movement: Partial inversion Laryngeal Vestibule Closure at Height of Swallow: Incomplete; narrow column of air/contrast in laryngeal vestibule Pharyngeal Stripping Wave: Present - complete Pharyngoesophageal Segment Opening: Parital distension and partial duration; parital obstruction of flow Tongue Base Retraction: Wide column of contrast between tongue base & post. pharyngeal wall Pharyngeal Residue: Collection of residue within or on pharyngeal structures Esophageal Phase Esophageal Clearance: Complete clearance Treatment Strategies Effects of treatment strategies attemped:: Cough and re-swallow = not effective. Max verbal and visual cues for swallow onset = not effective Diagnosis/Impression Diagnosis: Moderate-Severe Oropharyngeal Dysphagia (R13.12) Impression: business employment specialist present during study to ensure O2 remain stable. O2 remained in 90s throughout study. The oral phase is primarily marked by... -Decreased bolus control with <1/2 of the bolus spilling posteriorly to the pyriforms prior to swallow onset observed with thin liquids especially. -Slowed and repetitive tongue motion for A-P transport. -Mild oral residue after the swallow. -Did not complete cookie trial due to concerns for choking with decreased bolus control, poor pharyngeal clearance, and decreased oral awareness. Patient requiring max verbal and visual cues throughout study. Patient observed to repeat commands back to ELECTRIC DRILL OPERATOR (e.g., swallow) but was unreliable with following commands. The pharyngeal phase is primarily marked by... -Moderately decreased airway closure during the swallow due to no anterior hyoid excursion, partial epiglottic inversion, and decreased laryngeal elevation. -Moderately-severely decreased tongue base retraction, and moderately decreased UES opening/duration, leading to moderate pharyngeal residues after the swallow, resulting in post-prandial penetration especially on thin liquid trials. -Severely decreased swallow onset time, resulting in penetration of trials prior to swallow onset, especially noted in thin liquid trials. -Consistent laryngeal penetration across thin and nectar thick which did not reliably eject from the laryngeal vestibule after the swallow. Use of cough and re-swallow was not effective in decreasing residues remaining in the laryngeal vestibule. Deep laryngeal penetration of honey thick liquids which did not reliable eject. -Unable to determine if aspiration occurred during the study due to patient's body habitus. The esophageal phase is grossly within normal limits with... -Good esophageal clearance with no retention or retrograde observed in the study. Recommendations Diet: NPO Recommend Repeat Modified Barium Swallow: Yes Need for Skilled Speech Therapy Services: Yes Comment: Will recommend the patient for dysphagia therapy to address deficits in oropharyngeal swallow function. Will recommend the patient for oropharyngeal strengthening to improve lingual coordination, laryngeal elevation, hyoid excursion, tongue base retraction, and duration of UES opening. Additionally would recommend the patient for oropharyngeal therapy to increase oral and pharyngeal sensation. The patient would benefit from thorough education regarding diet recommendations and recommended compensatory strategies. Would recommend patient repeat MBSS upon 2-3 weeks of skilled speech therapy services. Would not recommend patient for diet advancements until repeat MBSS completed. Education Completed: 1. Described result of evaluation., 7. Pt requires further education on strategies & risks. and 8. Family/caregivers require further education on strategies & risks. Status Active ST Patient: Active Contact Information [facility] Speech Therapy:: Miguel Townsend M.A. CF-ELECTRIC DRILL OPERATOR Speech-Language Pathologist [facility] [address] [place] [address]
--- NOTE | 2023-05-23 15:45 | CASEMGMT ---
DEON CM: Per Dr. Stephens's discussion with pt's family and order, palliative care referral sent to [facility] via confidential email. Geovanna Foote RN CM
[2023-05-23 16:37] LABS: Bedside Glucose 120 mg/dL (74-106)
[2023-05-23 21:56] LABS: Bedside Glucose 114 mg/dL (74-106)
[2023-05-24] VITALS (11 sets, daily range): BP systolic 111–133; BP diastolic 61–72; PULSE 80–107; RESP 16–20; TEMP 36.1–36.8; O2SAT 92–98; BMI 30.2
[2023-05-24] MEDS: 0.9% Saline Lock 10 ML Syringe IV ×2 (06:16→18:16)
[2023-05-24 06:50] LABS: Vancomycin, Random Level 15.2 ug/mL (0.0-15.0)
[2023-05-24 06:52] LABS: Bedside Glucose 97 mg/dL (74-106)
[2023-05-24] MEDS: Ipratropium/Albuterol Sulfate 3 ML AMPUL.NEB INHALATION ×3 (07:13→19:51)
[2023-05-24] MEDS: Acetylcysteine 800 MG/4 ML VIAL.NEB. INHALATION ×3 (07:13→19:51)
--- NOTE | 2023-05-24 08:46 | PCM.RX.CS ---
Consult Antibiotic Management Pharmacy has been consulted to manage selected antiobiotic: Vancomycin Type of Intervention Type of Consult: Follow-up Suspected Infection Suspected Infection: Sepsis and Pneumonia Prior Doses of Antibiotics Prior Doses of Antibiotics Received/Current Regimen: RECEIVED 3 DOSES OF VANCOMYCIN 1 G Q12H ON 05/22 AND 05/23 Labs Labs: Sodium 146 mmol/L (136-145) H 05/23/23 06:55 Potassium 3.7 mmol/L (3.5-5.1) 05/23/23 06:55 Chloride 114 mmol/L (98-107) H 05/23/23 06:55 Carbon Dioxide 28.0 mmol/L (21.0-32.0) 05/23/23 06:55 Anion Gap 4 (5-15) L 05/23/23 06:55 BUN 14 mg/dL (7-18) 05/23/23 06:55 Creatinine 1.30 mg/dL (0.70-1.30) 05/23/23 06:55 Est GFR (MDRD) Af Amer 69 mL/min (>60) 05/23/23 06:55 Est GFR (MDRD) Non-Af 57 mL/min (>60) L 05/23/23 06:55 BUN/Creatinine Ratio 10.8 RATIO (10-20) 05/23/23 06:55 Glucose 111 mg/dL (74-106) H 05/23/23 06:55 Vancomycin Trough 22.3 ug/mL (5.0-15.0) H 05/23/23 11:50 Random Vancomycin 15.2 ug/mL (0.0-15.0) H 05/24/23 06:13 Microbiology Microbiology: Microbiology 05/20/23 11:20 Urine Catheter - Garvey Urine Culture - Final Culture exhibits no growth. 05/20/23 09:55 Sputum, Induced/Lukens Gram Stain - Final 05/20/23 09:55 Sputum, Induced/Lukens Respiratory Culture - Final Mixed normal respiratory crys. No Streptococcus pneumoniae, beta-hemolytic Streptococcus or Staphylococcus aureus isolated. 05/19/23 21:05 Blood Culture (Wb) - Right Forearm Blood Culture - Preliminary No growth in 48 hours. 05/19/23 21:45 Blood Culture (Wb) - Right Forearm Blood Culture - Preliminary No growth in 48 hours. 05/20/23 11:20 Urine Catheter - Catheter Legionella Antigen - Final 05/20/23 11:20 Urine Catheter - Catheter Streptococcus pneumoniae Antigen (M - Final Dosing Weight Weight used for dosin.8 kg Estimated Creatinine Clearance Estimated Creatinine Clearance: 54 Goal Trough Goal Trough: 15-20 mcg/mL Pharmacy Plan for Drug Dosing Pharmacy Plan for Drug Dosing: Vancomycin random drawn this morning is 15.2, will resume vancomycin dosing at a decreased dose of 750 mg Q12H Pharmacy Service will continue to monitor and adjust dosing as required. Follow-Up Labs Follow-Up Labs: Trough: Vancomycin (Vancomycin trough due 05/25 before the 4th dose) Date/Time Labs Ordered Labs to be done on [date and time ordered]: Vancomycin trough due 05/25/23 @ 2030 1/2 hour prior to the 4th dose
--- NOTE | 2023-05-24 09:03 | PN.HOSP_ITS ---
Reason for Visit Reason for Visit: Diagnoses Sepsis, unspecified organism (05/19/23) Elevated white blood cell count, unspecified (05/19/23) Acidosis, unspecified (05/19/23) Hyperkalemia (05/19/23) Other toxic encephalopathy (05/19/23) Pneumonitis due to inhalation of food and vomit (05/19/23) Acute respiratory failure with hypoxia (05/19/23) Acute kidney failure, unspecified (05/19/23) Nausea with vomiting, unspecified (05/19/23) Dysphagia, unspecified (05/19/23) Severe sepsis with septic shock (05/19/23) Subjective Subjective Significantly aspirating all consistencies. Vomited today. Objective Data Objective Data Vital Signs: Vital Signs Temp Pulse Resp BP Pulse Ox O2 Del Method O2 Flow Rate 36.8 C 94 16 111/67 94 Nasal Cannula 1.5 05/24/23 04:30 05/24/23 07:13 05/24/23 07:13 05/24/23 04:30 05/24/23 07:27 05/24/23 07:27 05/24/23 07:27 FiO2 3 05/19/23 23:59 Oxygen Flow Rate (L/min) 1.5 Oxygen Delivery Method Nasal Cannula Weight: 103.9 kg Body Mass Index (BMI) 30.2 Intake & Output: Intake and Output for Last 24 Hours 05/22/23 05/23/23 05/24/23 23:59 23:59 23:59 Intake Total 1918.75 / 1918.75 301.25 / 301.25 50 / 50 Output Total 1050 / 1050 940 / 940 Balance 868.75 / 868.75 -638.75 / -638.75 50 / 50 Lab / Micro Data 05/24/23 06:13 05/24/23 06:13 Labs: Laboratory Results - last 24 hr 05/23/23 11:50: Vancomycin Trough 22.3 H 05/23/23 12:07: POC Glucose 101 05/23/23 16:19: POC Glucose 120 H 05/23/23 21:19: POC Glucose 114 H 05/24/23 06:13: Random Vancomycin 15.2 H 05/24/23 06:32: POC Glucose 97 Micro: Microbiology 05/20/23 11:20 Urine Catheter - Garvey Urine Culture - Final Culture exhibits no growth. 05/20/23 09:55 Sputum, Induced/Lukens Gram Stain - Final 05/20/23 09:55 Sputum, Induced/Lukens Respiratory Culture - Final Mixed normal respiratory crys. No Streptococcus pneumoniae, beta-hemolytic Streptococcus or Staphylococcus aureus isolated. 05/19/23 21:05 Blood Culture (Wb) - Right Forearm Blood Culture - Preliminary No growth in 48 hours. 05/19/23 21:45 Blood Culture (Wb) - Right Forearm Blood Culture - Preliminary No growth in 48 hours. 05/20/23 11:20 Urine Catheter - Catheter Legionella Antigen - Final 05/20/23 11:20 Urine Catheter - Catheter Streptococcus pneumoniae Antigen (M - Final Physical Exam Const alert Constitutional Narrative: up in chair. more alert. suctioning himself w/o difficulty. Resp normal respiratory effort and no retractions Resp Narrative: coarse BS bilaterally. Cardio regular rate, regular rhythm, S1 normal heart sound and S2 normal heart sound GI normal to inspection, nondistended, normoactive bowel sounds, soft to palpation, non-tender and non-distended Extremity normal to inspection Assessment & Plan Assessment/Plan (1) Septic shock: PLAN: POA, subsequently resolved. Patient with fever, leukocytosis, tachypnea, acute hypoxic respiratory failure, elevated lactate that was refractory to fluid resuscitation at 30 cc/kg body weight Pressors were initiated, since weaned off Suspected source is aspiration but definitive work-up is in progress UA is not suggestive of infection Sputum culture negative Strep pneumo and Legionella antigens are negative Blood cultures are negative Chest x-ray shows poor inspiratory effort. Cannot rule out pneumonia. Deescalate Abx to amp/SB (2) Acute respiratory failure with hypoxia: PLAN: Patient with tachypnea and hypoxia on presentation initially required up titration to 15 L and then nonrebreather at 100% Patient is not oxygen dependent at baseline Pulmonary toilet (3) Toxic metabolic encephalopathy: PLAN: POA, patient was not responsive on presentation Suspect more metabolic given septic shock, but also complicated by meds (pt takes gabapentin at baseline) Patient with dementia at baseline and is at risk for hospital acquired delirium Continue to monitor would avoid atypical antipsychotics and Haldol as this could lower seizure threshold Hold gabapentin (risk >> benefits) NGT removed by patient. I would not replace at this time given his ongoing confusion and high likelihood of removal again. Ammonia level was up, but I do not feel that this is entirely hepatic encephalopathy. (4) Acidosis, lactic: PLAN: Resolved 2/2 to septic shock (5) Leukocytosis: QUALIFIERS: Leukocytosis type: unspecified Qualified Code(s): D72.829 - Elevated white blood cell count, unspecified PLAN: Resolved 2/2 septic shock (6) JOAQUIM (acute kidney injury): PLAN: Resolved Baseline serum creatinine appears to be between 0.8 and 1 Current serum creatinine is 1.46--> suspect mild ischemic ATN We will continue IV fluids with normal saline at 75 cc/h (7) Dysphagia: QUALIFIERS: Dysphagia type: unspecified Qualified Code(s): R13.10 - Dysphagia, unspecified PLAN: Highly concern for aspiration pneumonia Consult speech therapy Patient clearly not protecting his airway. I discussed with the patient's niece and informed her that the best way to prevent further aspiration events is placed PEG tube. I told her that may not provide the patient quality of life and actually discouraged that. She was in agreement. We will add glycopyrrolate to help with secretions. (8) Hyperkalemia: PLAN: resolved likely lab error as sample was hemolyzed no additional work up. PLAN: Plan Chronic conditions: * DM-2-On Trulicity at baseline-Trulicity on hold-Start sliding scale insulin-A ccu-Cheks Q6 * History of seizure disorder-Start Trileptal-Restart valproic acid-Both via NG-Discontinue Keppra * History of gout-Restart febuxostat once able * Depression-Hold Lexapro for now * Hyperlipidemia-Hold to restart now * Dementia DVT prophylaxis -Lovenox 40 daily CODE STATUS DNR CCA with no intubation Prognosis: guarded 05/23: DW patient's niece, Tanya Lobo, about feeding tubes, indication for feeding tubes and my recommendation for quality of life. She is agreement that feeding tube would not be what he would want and also is agreeable to meeting with palliative care upon discharge to help with his symptoms. 05/24: His care planning: Spent an additional 20 minutes discussing with the patient's niece again. With his sigmoid aspiration no sign of any improvement, but the patient is currently stable this time he is at high risk for a future significant aspiration event. With that being said I told her I would advise hospice care. She was agreeable but stated that she would want to talk with family before she would commit to the doing that. She said that she would be talking to family here today and tonight. She would let us know her final decision. Charges/Coding Visit Charges Inpatient E&M: 70054 Subs Hosp L2 Procedures Hospitalists Procedures: 80371 Advncd Care Plan 30 Min
[2023-05-24 09:19] LABS: Absolute Lymphocyte Count 1.01 X10^3/uL (0.83-4.51); Absolute Neutrophil Count 5.3 X10^3/uL (2.0-7.7); Basophil# 0.04 X10^3/uL; Basophil% 0.6 % (0-1); Eosinophil# 0.08 X10^3/uL; Eosinophils% 1.1 % (0-5); Hematocrit 35.7 % (40-54); Lymphocyte # 1.01 X10^3/ul (0.83-4.51); Mean Corp Hgb Conc 30.8 g/dL (32-36); Mean Corpuscular Hgb 30.6 pg (27.0-32.0); Mean Corpuscular Volume 99.4 fL (80-94); Mean Platelet Vol. 9.4 fl (6.2-12.0); Monocyte# 0.75 X10^3/uL; Monocyte% 10.4 % (0-10); NRBC Flagged by Analyzer 0 % (0-5); Neutrophil # 5.28 X10^3/uL (2.7-7.7); Neutrophil % 73.5 % (47-70); Platelet Count 137 K/mm3 (150-450); RBC Distribution Width CV 15.2 % (11.6-14.6); RBC Distribution Width SD 56.1 fl (35.1-43.9); Red Blood Count 3.59 M/mm3 (4.6-6.2); White Blood Count 7.2 K/mm3 (4.4-11.0)
[2023-05-24 09:32] LABS: Anion Gap 6 (5-15); BUN 19 mg/dL (7-18); BUN/Creat Ratio 11.9 RATIO (10-20); Chloride 113 mmol/L (98-107); EST Glomerular Filtration Rate 45 mL/min (>60); Est Glom Filt Rate - Afr Amer 54 mL/min (>60); Estimated Creatinine Clearance 44.39 ml/min; Glucose 108 mg/dL (74-106); Potassium 3.6 mmol/L (3.5-5.1); Sodium Level 146 mmol/L (136-145)
--- NOTE | 2023-05-24 09:34 | CASEMGMT ---
Discharge Planning Asst. Updates sent to [facility] via [facility]. Belkys Shin, Discharge Planning Asst.
--- NOTE | 2023-05-24 09:36 | CASEMGMT ---
SW asked Belkys delacruz/yonathan production planning supervisor to please send updates to [facility]. Anne Simpson PRECISION ASSEMBLY INSPECTOR FAIZA
[2023-05-24] MEDS: Furosemide 20 MG Tablet PO (09:58)
[2023-05-24] MEDS: Metoprolol Tartrate 25 MG Tablet 12.5 MG PO (09:58)
[2023-05-24] MEDS: OXcarbazepine 600 MG Tablet PO (10:00)
[2023-05-24] MEDS: Valproic Acid 250 MG/5 ML UDC 500 MG NG (10:00)
[2023-05-24 12:00] LABS: Bedside Glucose 107 mg/dL (74-106)
[2023-05-24 17:09] LABS: Bedside Glucose 98 mg/dL (74-106)
[2023-05-24] MEDS: Lactulose 20 GM/30 ML UDC 200 GM RC (18:16)
[2023-05-24] MEDS: Metoprolol Tartrate 5 MG/5 ML Vial 2.5 MG IV (18:20)
[2023-05-24 22:10] LABS: Bedside Glucose 100 mg/dL (74-106)
[2023-05-25] VITALS (14 sets, daily range): BP systolic 121–167; BP diastolic 69–131; PULSE 87–98; RESP 14–18; TEMP 36.3–36.8; O2SAT 95–100; BMI 30.1
[2023-05-25] MEDS: Lactulose 20 GM/30 ML UDC 200 GM RC ×3 (00:57→17:52)
[2023-05-25] MEDS: Metoprolol Tartrate 5 MG/5 ML Vial 2.5 MG IV ×4 (01:23→17:50)
[2023-05-25] MEDS: 0.9% Saline Lock 10 ML Syringe IV (06:16)
[2023-05-25 06:26] LABS: Absolute Lymphocyte Count 1.06 X10^3/uL (0.83-4.51); Absolute Neutrophil Count 6.3 X10^3/uL (2.0-7.7); Basophil# 0.04 X10^3/uL; Basophil% 0.5 % (0-1); Eosinophil# 0.08 X10^3/uL; Hematocrit 36.8 % (40-54); Hemoglobin 11.2 g/dL (13.0-16.5); Lymphocyte # 1.06 X10^3/ul (0.83-4.51); Lymphocyte % 12.7 % (19-41); Mean Corp Hgb Conc 30.4 g/dL (32-36); Mean Corpuscular Hgb 30.9 pg (27.0-32.0); Mean Corpuscular Volume 101.7 fL (80-94); Mean Platelet Vol. 9.3 fl (6.2-12.0); Monocyte% 9.6 % (0-10); NRBC Flagged by Analyzer 0 % (0-5); Neutrophil # 6.33 X10^3/uL (2.7-7.7); Neutrophil % 75.6 % (47-70); Platelet Count 146 K/mm3 (150-450); RBC Distribution Width CV 15.2 % (11.6-14.6); RBC Distribution Width SD 57.6 fl (35.1-43.9); Red Blood Count 3.62 M/mm3 (4.6-6.2); White Blood Count 8.4 K/mm3 (4.4-11.0)
[2023-05-25] MEDS: Ipratropium/Albuterol Sulfate 3 ML AMPUL.NEB INHALATION ×2 (07:17→14:45)
[2023-05-25] MEDS: Acetylcysteine 800 MG/4 ML VIAL.NEB. INHALATION (07:17)
[2023-05-25 07:28] LABS: Anion Gap 6 (5-15); BUN 20 mg/dL (7-18); BUN/Creat Ratio 12.7 RATIO (10-20); Calcium,Total 9.2 mg/dL (8.5-10.1); Chloride 119 mmol/L (98-107); Creatinine, Serum 1.57 mg/dL (0.70-1.30); EST Glomerular Filtration Rate 46 mL/min (>60); Est Glom Filt Rate - Afr Amer 56 mL/min (>60); Estimated Creatinine Clearance 45.24 ml/min; Glucose 107 mg/dL (74-106); Potassium 3.1 mmol/L (3.5-5.1); Sodium Level 151 mmol/L (136-145)
--- NOTE | 2023-05-25 08:18 | PCM.PN.HOSP ---
Reason for Visit Reason for Visit: Diagnoses Sepsis, unspecified organism (05/19/23) Elevated white blood cell count, unspecified (05/19/23) Acidosis, unspecified (05/19/23) Hyperkalemia (05/19/23) Other toxic encephalopathy (05/19/23) Pneumonitis due to inhalation of food and vomit (05/19/23) Acute respiratory failure with hypoxia (05/19/23) Acute kidney failure, unspecified (05/19/23) Nausea with vomiting, unspecified (05/19/23) Dysphagia, unspecified (05/19/23) Severe sepsis with septic shock (05/19/23) Subjective Subjective Feels well. Wants to eat. Objective Data Objective Data Vital Signs: Vital Signs Temp Pulse Resp BP Pulse Ox O2 Del Method O2 Flow Rate 36.4 C L 95 18 158/84 H 95 Nasal Cannula 2 05/25/23 07:56 05/25/23 07:56 05/25/23 07:56 05/25/23 07:56 05/25/23 07:56 05/25/23 07:56 05/25/23 07:56 FiO2 3 05/19/23 23:59 Oxygen Flow Rate (L/min) 2 Oxygen Delivery Method Nasal Cannula Weight: 103.6 kg Body Mass Index (BMI) 30.1 Intake & Output: Intake and Output for Last 24 Hours 05/23/23 05/24/23 05/25/23 23:59 23:59 23:59 Intake Total 301.25 / 301.25 754 / 754 334 / 334 Output Total 940 / 940 325 / 325 Balance -638.75 / -638.75 429 / 429 334 / 334 Lab / Micro Data 05/25/23 05:44 05/25/23 05:44 Labs: Laboratory Results - last 24 hr 05/24/23 06:13: WBC 7.2, RBC 3.59 L, Hgb 11.0 L, Hct 35.7 L, MCV 99.4 H, MCH 30.6, MCHC 30.8 L, RDW Std Deviation 56.1 H, RDW Coeff of Bobby 15.2 H, Plt Count 137 L, MPV 9.4, Immature Gran % (Auto) 0.400, Neut % (Auto) 73.5 H, Lymph % (Auto) 14.0 L, [place] % (Auto) 10.4 H, Eos % (Auto) 1.1, Baso % (Auto) 0.6, Absolute Neuts (auto) 5.3, Absolute Lymphs (auto) 1.01, Nucleated RBC % 0, Sodium 146 H, Potassium 3.6, Chloride 113 H, Carbon Dioxide 27.0, Anion Gap 6, BUN 19 H, Creatinine 1.60 H, Estim Creat Clear Calc 44.39, Est GFR (MDRD) Af Amer 54 L, Est GFR (MDRD) Non-Af 45 L, BUN/Creatinine Ratio 11.9, Glucose 108 H, Calcium 9.0 05/24/23 11:31: POC Glucose 107 H 05/24/23 16:23: POC Glucose 98 05/24/23 21:50: POC Glucose 100 05/25/23 05:44: WBC 8.4, RBC 3.62 L, Hgb 11.2 L, Hct 36.8 L, MCV 101.7 H, MCH 30.9, MCHC 30.4 L, RDW Std Deviation 57.6 H, RDW Coeff of Bobby 15.2 H, Plt Count 146 L, MPV 9.3, Immature Gran % (Auto) 0.600, Neut % (Auto) 75.6 H, Lymph % (Auto) 12.7 L, [place] % (Auto) 9.6, Eos % (Auto) 1.0, Baso % (Auto) 0.5, Absolute Neuts (auto) 6.3, Absolute Lymphs (auto) 1.06, Nucleated RBC % 0, Sodium 151 H, Potassium 3.1 L, Chloride 119 H, Carbon Dioxide 26.0, Anion Gap 6, BUN 20 H, Creatinine 1.57 H, Estim Creat Clear Calc 45.24, Est GFR (MDRD) Af Amer 56 L, Est GFR (MDRD) Non-Af 46 L, BUN/Creatinine Ratio 12.7, Glucose 107 H, Calcium 9.2 Micro: Microbiology 05/19/23 21:45 Blood Culture (Wb) - Right Forearm Blood Culture - Final No growth in 5 days. 05/19/23 21:05 Blood Culture (Wb) - Right Forearm Blood Culture - Final No growth in 5 days. 05/20/23 11:20 Urine Catheter - Garvey Urine Culture - Final Culture exhibits no growth. 05/20/23 09:55 Sputum, Induced/Lukens Gram Stain - Final 05/20/23 09:55 Sputum, Induced/Lukens Respiratory Culture - Final Mixed normal respiratory crys. No Streptococcus pneumoniae, beta-hemolytic Streptococcus or Staphylococcus aureus isolated. 05/20/23 11:20 Urine Catheter - Catheter Legionella Antigen - Final 05/20/23 11:20 Urine Catheter - Catheter Streptococcus pneumoniae Antigen (M - Final Physical Exam Const Constitutional Narrative: Up in bed. Awake. Follows commands. Suctions himself w/o difficulty. HEENT head/scalp atraumatic and moist oral mucous membranes Resp normal respiratory effort Resp Narrative: coarse BS bilaterally. Cardio regular rate, regular rhythm, S1 normal heart sound and S2 normal heart sound GI normal to inspection, nondistended, normoactive bowel sounds, soft to palpation, non-tender and non-distended Extremity Extremity Narrative: non-pitting LE edema. Assessment & Plan Assessment/Plan (1) Septic shock: PLAN: POA, subsequently resolved. Patient with fever, leukocytosis, tachypnea, acute hypoxic respiratory failure, elevated lactate that was refractory to fluid resuscitation at 30 cc/kg body weight Pressors were initiated, since weaned off Suspected source is aspiration but definitive work-up is in progress UA is not suggestive of infection Sputum culture negative Strep pneumo and Legionella antigens are negative Blood cultures are negative Chest x-ray shows poor inspiratory effort. Cannot rule out pneumonia. Deescalate Abx to amp/SB (2) Acute respiratory failure with hypoxia: PLAN: Resolved 2/2 aspiration and pneumonia Patient with tachypnea and hypoxia on presentation initially required up titration to 15 L and then nonrebreather at 100% Patient is not oxygen dependent at baseline Pulmonary toilet (3) Toxic metabolic encephalopathy: PLAN: POA, patient was not responsive on presentation Suspect more metabolic given septic shock, but also complicated by meds (pt takes gabapentin at baseline) Patient with dementia at baseline and is at risk for hospital acquired delirium Continue to monitor would avoid atypical antipsychotics and Haldol as this could lower seizure threshold Hold gabapentin (risk >> benefits) NGT removed by patient. I would not replace at this time given his ongoing confusion and high likelihood of removal again. Ammonia level was up, but I do not feel that this is entirely hepatic encephalopathy. (4) Acidosis, lactic: PLAN: Resolved 2/2 to septic shock (5) Leukocytosis: QUALIFIERS: Leukocytosis type: unspecified Qualified Code(s): D72.829 - Elevated white blood cell count, unspecified PLAN: Resolved 2/2 septic shock (6) JOAQUIM (acute kidney injury): PLAN: Resolved, but now trending back up Restart IVF (7) Dysphagia: QUALIFIERS: Dysphagia type: unspecified Qualified Code(s): R13.10 - Dysphagia, unspecified PLAN: Highly concern for aspiration pneumonia Consult speech therapy Patient clearly not protecting his airway. Previously, I discussed with the patient's niece and informed her that the best way to prevent further aspiration events is placed PEG tube. I told her that may not provide the patient quality of life and actually discouraged that. She was in agreement. We will add glycopyrrolate to help with secretions. 05/25: DW pt's niece, she does not want NGT replaced at this time. (8) Hyperkalemia: PLAN: resolved likely lab error as sample was hemolyzed no additional work up. (9) Hypernatremia: PLAN: Start IVF with 0.45 NS Monitor (10) Hypokalemia: PLAN: replace. check magnesium and replace if low. PLAN: Plan Chronic conditions: DM-2-On Trulicity at baseline-Trulicity on hold-Start sliding scale plbeloh-Edil-Avpyh Q6 History of seizure disorder-Start Trileptal-Restart valproic acid-Both via NG-Discontinue Keppra History of gout-Restart febuxostat once able Depression-Hold Lexapro for now Hyperlipidemia-Hold to restart now Dementia DVT prophylaxis -Lovenox 40 daily CODE STATUS DNR CCA with no intubation Prognosis: guarded 05/23: DW patient's niece, Tanya Lobo, about feeding tubes, indication for feeding tubes and my recommendation for quality of life. She is agreement that feeding tube would not be what he would want and also is agreeable to meeting with palliative care upon discharge to help with his symptoms. 05/24: His care planning: Spent an additional 20 minutes discussing with the patient's niece again. With his sigmoid aspiration no sign of any improvement, but the patient is currently stable this time he is at high risk for a future significant aspiration event. With that being said I told her I would advise hospice care. She was agreeable but stated that she would want to talk with family before she would commit to the doing that. She said that she would be talking to family here today and tonight. She would let us know her final decision. 05/25: J LUIS Martínez, she spoke with her family and they request transfer to [facility] for second opinion. I told her we can medically treat him here, such as NPO, NGT, medications and a transfer to [facility] may not qualify as a higher level of care. Additionally I told her transportation could potentially not be covered. She said the cost of transportation would not be an issue. I did tell her that since the transfer would not be for a higher level of care, they may not accept patient. She said she understood and would be ok with him remaining here. I then called the [facility] tranfser line and discussed the case with them. I awaiting to hear back if the patient would be accepted. Greater than 50 minutes of which greater than 50% of the time was discussing with the patient's niece, Tanya, about transfer, to [facility] transfer line. Charges/Coding Visit Charges Inpatient E&M: 63008 Subs Hosp L3
[2023-05-25 08:43] LABS: Bedside Glucose 97 mg/dL (74-106)
[2023-05-25] MEDS: 0.45% Normal Saline 1,000 ML 100 ML IV (10:56)
[2023-05-25] MEDS: Potassium Chloride 10mEq/100mL 10 MEQ/100 ML IV.SOLN. 100 MEQ IV BOLUS ×4 (11:39→15:58)
[2023-05-25 11:57] LABS: Magnesium 2.3 mg/dL (1.6-2.6)
[2023-05-25 12:06] LABS: Bedside Glucose 94 mg/dL (74-106)
--- NOTE | 2023-05-25 12:49 | DS.PCM_ITS ---
Providers Date of Admission: 05/19/23 Primary Care Physician: Dr. Brant Salmon Sr., DO Consultations 05/23/23 11:24 Consult: Hospice / Palliative Care Routine Consulting Provider: [facility] Reason for Consult: palliative care consult for multiple medical comborbidi ties. EMERGENT Consult: No MD Notified: Yes Date Notified: 05/23/23 Time Notified: 11:24 Method of Notification: case mangement Reason For Visit: SEPSIS DUE TO ASPIRATION PNEUMONIA Diagnosis Discharge Diagnosis (1) Septic shock: Status: Acute Code(s): A41.9 - Sepsis, unspecified organism; R65.21 - Severe sepsis with septic shock Plan: POA, subsequently resolved. Patient with fever, leukocytosis, tachypnea, acute hypoxic respiratory failure, elevated lactate that was refractory to fluid resuscitation at 30 cc/kg body weight Pressors were initiated, since weaned off Suspected source is aspiration but definitive work-up is in progress UA is not suggestive of infection Sputum culture negative Strep pneumo and Legionella antigens are negative Blood cultures are negative Chest x-ray shows poor inspiratory effort. Cannot rule out pneumonia. Deescalate Abx to amp/SB (2) Acute respiratory failure with hypoxia: Status: Acute Code(s): J96.01 - Acute respiratory failure with hypoxia Plan: Resolved 2/2 aspiration and pneumonia Patient with tachypnea and hypoxia on presentation initially required up titration to 15 L and then nonrebreather at 100% Patient is not oxygen dependent at baseline Pulmonary toilet (3) Toxic metabolic encephalopathy: Status: Acute Code(s): G92.8 - Other toxic encephalopathy Plan: POA, patient was not responsive on presentation Suspect more metabolic given septic shock, but also complicated by meds (pt takes gabapentin at baseline) Patient with dementia at baseline and is at risk for hospital acquired delirium Continue to monitor would avoid atypical antipsychotics and Haldol as this could lower seizure threshold Hold gabapentin (risk >> benefits) NGT removed by patient. I would not replace at this time given his ongoing confusion and high likelihood of removal again. Ammonia level was up, but I do not feel that this is entirely hepatic encephalopathy. (4) Acidosis, lactic: Status: Acute Code(s): E87.20 - Acidosis, unspecified Plan: Resolved 2/2 to septic shock (5) Leukocytosis: Status: Acute Code(s): D72.829 - Elevated white blood cell count, unspecified Qualifiers: Leukocytosis type: unspecified Qualified Code(s): D72.829 - Elevated white blood cell count, unspecified Plan: Resolved 2/2 septic shock (6) JOAQUIM (acute kidney injury): Status: Acute Code(s): N17.9 - Acute kidney failure, unspecified Plan: Resolved, but now trending back up Restart IVF (7) Dysphagia: Status: Acute Code(s): R13.10 - Dysphagia, unspecified Qualifiers: Dysphagia type: unspecified Qualified Code(s): R13.10 - Dysphagia, unspecified Plan: Highly concern for aspiration pneumonia Consult speech therapy Patient clearly not protecting his airway. Previously, I discussed with the patient's niece and informed her that the best way to prevent further aspiration events is placed PEG tube. I told her that may not provide the patient quality of life and actually discouraged that. She was in agreement. We will add glycopyrrolate to help with secretions. 05/25: J LUIS pt's niece, she does not want NGT replaced at this time. (8) Hyperkalemia: Status: Acute Code(s): E87.5 - Hyperkalemia Plan: resolved likely lab error as sample was hemolyzed no additional work up. (9) Hypernatremia: Status: Acute Code(s): E87.0 - Hyperosmolality and hypernatremia Plan: Start IVF with 0.45 NS Monitor (10) Hypokalemia: Status: Acute Code(s): E87.6 - Hypokalemia Plan: replace. check magnesium and replace if low. Plan Chronic conditions: * DM-2-On Trulicity at baseline-Trulicity on hold-Start sliding scale [id number] Q6 * History of seizure disorder-Start Trileptal-Restart valproic acid-Both via NG- Discontinue Keppra * History of gout-Restart febuxostat once able * Depression-Hold Lexapro for now * Hyperlipidemia-Hold to restart now * Dementia DVT prophylaxis -Lovenox 40 daily CODE STATUS DNR CCA with no intubation Prognosis: guarded 05/23: DW patient's niece, Tanya Lobo, about feeding tubes, indication for feeding tubes and my recommendation for quality of life. She is agreement that feeding tube would not be what he would want and also is agreeable to meeting with palliative care upon discharge to help with his symptoms. 05/24: His care planning: Spent an additional 20 minutes discussing with the patient's niece again. With his sigmoid aspiration no sign of any improvement, but the patient is currently stable this time he is at high risk for a future significant aspiration event. With that being said I told her I would advise hospice care. She was agreeable but stated that she would want to talk with family before she would commit to the doing that. She said that she would be talking to family here today and tonight. She would let us know her final de cision. 05/25: J LUIS Tanya, she spoke with her family and they request transfer to [facility] for second opinion. I told her we can medically treat him here, such as NPO, NGT, medications and a transfer to [facility] may not qualify as a higher level of care. Additionally I told her transportation could potentially not be covered. She said the cost of transportation would not be an issue. I did tell her that since the transfer would not be for a higher level of care, they may not accept patient. She said she understood and would be ok with him remaining here. I then called the [facility] tranfser line and discussed the case with them. I awaiting to hear back if the patient would be accepted. J LUIS Evangelista at [facility]. Pt has been accepted for transfer. Medications at Discharge Home Medications aspirin 81 mg tablet,delayed release (Adult Low Dose Aspirin) 81 mg PO DAILY HEART HEALTH 05/19/23 atorvastatin 20 mg tablet 20 mg PO QPM CHOLESTEROL 05/19/23 cholecalciferol (vitamin D3) 25 mcg (1,000 unit) capsule 25 mcg PO DAILY SUPPLEMENT 05/19/23 dulaglutide 1.5 mg/0.5 mL subcutaneous pen injector (Trulicity) 1.5 mg subcut QWEEK DM 05/19/23 escitalopram oxalate 10 mg tablet 10 mg PO DAILY DEPRESSION 05/19/23 febuxostat 80 mg tablet 80 mg PO DAILY GOUT 05/19/23 gabapentin 300 mg capsule 300 mg PO TID ENCEPHALOPATHY 05/19/23 lactulose 10 gram/15 mL oral solution 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 05/19/23 lisinopril 2.5 mg tablet 2.5 mg PO DAILY HTN 05/19/23 metoprolol tartrate 25 mg tablet 12.5 mg PO BID HTN 05/19/23 ondansetron HCl 4 mg tablet 4 mg PO Q8H PRN nausea 05/19/23 oxcarbazepine 600 mg tablet 600 mg PO BID SEIZURES 05/19/23 torsemide 10 mg tablet 10 mg PO DAILY HTN 05/19/23 valproic acid 250 mg capsule 500 mg PO Q8H EPILEPSY 05/19/23 Hospital Course Operations None Procedures None Summary of Care Provided Minutes Spent on Discharge: 60 Weight / BMI Weight Weight: 103.6 kg Body Mass Index (BMI) 30.1 ABG / Lab / Microbiology Data 05/25/23 05:44 05/25/23 05:44 Laboratory: Laboratory Results - last 24 hr 05/24/23 16:23: POC Glucose 98 05/24/23 21:50: POC Glucose 100 05/25/23 05:44: WBC 8.4, RBC 3.62 L, Hgb 11.2 L, Hct 36.8 L, MCV 101.7 H, MCH 30.9, MCHC 30.4 L, RDW Std Deviation 57.6 H, RDW Coeff of Bobby 15.2 H, Plt Count 146 L, MPV 9.3, Immature Gran % (Auto) 0.600, Neut % (Auto) 75.6 H, Lymph % (Auto) 12.7 L, [place] % (Auto) 9.6, Eos % (Auto) 1.0, Baso % (Auto) 0.5, Absolute Neuts (auto) 6.3, Absolute Lymphs (auto) 1.06, Nucleated RBC % 0, Sodium 151 H, Potassium 3.1 L, Chloride 119 H, Carbon Dioxide 26.0, Anion Gap 6, BUN 20 H, Creatinine 1.57 H, Estim Creat Clear Calc 45.24, Est GFR (MDRD) Af Amer 56 L, Est GFR (MDRD) Non-Af 46 L, BUN/Creatinine Ratio 12.7, Glucose 107 H, Calcium 9.2, Magnesium 2.3 05/25/23 07:54: POC Glucose 97 05/25/23 11:44: POC Glucose 94 Microbiology: Microbiology 05/19/23 21:45 Blood Culture (Wb) - Right Forearm Blood Culture - Final No growth in 5 days. 05/19/23 21:05 Blood Culture (Wb) - Right Forearm Blood Culture - Final No growth in 5 days. 05/20/23 11:20 Urine Catheter - [place] Urine Culture - Final Culture exhibits no growth. 05/20/23 09:55 Sputum, Induced/Lukens Gram Stain - Final 05/20/23 09:55 Sputum, Induced/Lukens Respiratory Culture - Final Mixed normal respiratory crys. No Streptococcus pneumoniae, beta-hemolytic Streptococcus or Staphylococcus aureus isolated. 05/20/23 11:20 Urine Catheter - Catheter Legionella Antigen - Final 05/20/23 11:20 Urine Catheter - Catheter Streptococcus pneumoniae Antigen (M - Final Meaningful Use Info Meaningful Use Diagnoses (Choose all that apply): None applicable Discharge Plan Admission Admit Date/Time: 05/19/23 22:22 Primary Reason for Your Visit: septic shock. Attending Provider: Edi Stephens Primary Care Provider: Brant Salmon Sr. Consulting Providers: Kristian Radford; Rehana Lucas; Filippo Palacios; Negar Smith; Sarina Sharma; Yvonne Bacon SCHEDULING ADMINISTRATOR Discharge Orders/Prescriptions Prescriptions: No Action aspirin [Adult Low Dose Aspirin] 81 mg tablet,delayed release (DR/EC) 81 mg PO DAILY atorvastatin 20 mg tablet 20 mg PO QPM cholecalciferol (vitamin D3) 25 mcg (1,000 unit) capsule 25 mcg PO DAILY escitalopram oxalate 10 mg tablet 10 mg PO DAILY febuxostat 80 mg tablet 80 mg PO DAILY lisinopril 2.5 mg tablet 2.5 mg PO DAILY Rx Instructions: HOLD IF BP LESS THAN 90 torsemide 10 mg tablet 10 mg PO DAILY Trulicity 1.5 mg/0.5 mL pen injector 1.5 mg subcut QWEEK valproic acid 250 mg capsule 500 mg PO Q8H metoprolol tartrate 25 mg tablet 12.5 mg PO BID Rx Instructions: HOLD IF SBP<100 OR HR <60 oxcarbazepine 600 mg tablet 600 mg PO BID gabapentin 300 mg capsule 300 mg PO TID lactulose 10 gram/15 mL solution 20 g PO TID ondansetron HCl 4 mg tablet 4 mg PO Q8H PRN (Reason: nausea) Referrals / Follow Up: Brant Salmon Sr., [Primary Care Provider] - Disposition Disposition (needs filled in before D/C Order can be placed): Acute Care Hospital Charges/Coding Visit Charges Inpatient E&M: 22459 Disch Hosp >30min
--- NOTE | 2023-05-25 13:25 | CASEMGMT ---
Discharge Planning Apostolic notified via [facility] of patient being transferred to [facility]. Belkys Shin, Discharge Planning Asst.
[2023-05-25 18:01] LABS: Bedside Glucose 106 mg/dL (74-106)
== END 2023-05-25 20:45 | disposition short-term general hospital (02) | DRG 871 ==
LOC: ED 21:51 → ICU 22:37 → PCU 05-21 18:06
PROVIDERS: Family Medicine; Internal Medicine; Admitting Provider Hospitalist; Emergency Provider Emergency Medicine; PCP Internal Medicine
DX: A41.9 Sepsis, unspecified organism (principal); J96.01 Acute respiratory failure with hypoxia; J69.0 Pneumonitis due to inhalation of food and vomit; N17.0 Acute kidney failure with tubular necrosis; R65.21 Severe sepsis with septic shock; G92.8 Other toxic encephalopathy; E87.20 Acidosis, unspecified; J44.0 Chronic obstructive pulmonary disease with (acute) lower respiratory infection; E87.1 Hypo-osmolality and hyponatremia; E87.0 Hyperosmolality and hypernatremia; F03.90 Unspecified dementia, unspecified severity, without behavioral disturbance, psychotic disturbance, mood disturbance, and anxiety; E11.9 Type 2 diabetes mellitus without complications; G40.909 Epilepsy, unspecified, not intractable, without status epilepticus; R11.2 Nausea with vomiting, unspecified; I25.10 Atherosclerotic heart disease of native coronary artery without angina pectoris; E87.5 Hyperkalemia; E78.5 Hyperlipidemia, unspecified; E87.6 Hypokalemia; F32.A Depression, unspecified; M10.9 Gout, unspecified; R13.10 Dysphagia, unspecified; Z51.5 Encounter for palliative care; Z66 Do not resuscitate; Z79.82 Long term (current) use of aspirin
CPT/HCPCS: 31720; 36415; 36569; 70450; 71045; 74018; 74177; 74230; 80048; 80053; 80202; 81001; 82140; 82962; 83605; 83690; 83735; 84100; 85025; 87040; 87070; 87086; 87205; 87449; 87641; 92526; 92610; 92611; 93005; 94640; 94667; 94668; 94762; 97110; 97163; 97166; 97530; 97535; 97802; 99252; 99285; J7030; J7040; J7050; Q9967; A4216; G0463; J0295; J2405